=== PATIENT | male | born 1995 | race African-American/Black ===

== ENCOUNTER 2017-08-25 16:55 | Inpatient (IN) | payer SELFPAY ==
[~2017-08-25] VITALS: Ht 177.8 cm; Wt 67.4 kg
[2017-08-25 18:34] VITALS: BP 137/69; PULSE 64; RESP 18; TEMP 97.8
[2017-08-25] MEDS ORDERED: ALUMINUM/MAGNESIUM/SIMETH 30 ML CUP PO PRN (19:00)
[2017-08-25] MEDS ORDERED: ACETAMINOPHEN 325 MG TAB PO PRN (19:00)
[2017-08-25] MEDS ORDERED: hydrOXYzine HCL 50 MG TAB PO PRN (19:00)
[2017-08-25] MEDS ORDERED: BENZTROPINE MESYLATE 1 MG TAB PO PRN (19:00)
[2017-08-25] MEDS ORDERED: BENZTROPINE MESYLATE 2 MG/2 ML VIAL IM PRN (19:00)
[2017-08-25] MEDS ORDERED: MAGNESIUM HYDROXIDE SUSP 30 ML CUP PO PRN (19:00)
[2017-08-25] MEDS ORDERED: diphenhydrAMINE HCL 50 MG CAP - HS PRN PO (19:00)
[2017-08-25] MEDS ORDERED: LORazepam 2 MG/ML VIAL IV PUSH PRN ×4 (19:15)
[2017-08-25] MEDS ORDERED: LORazepam 1 MG TAB PO PRN (19:15)
[2017-08-25] MEDS ORDERED: FLUMAZENIL 0.5 MG/5 ML VIAL IV PUSH PRN (19:15)
[2017-08-25] MEDS ORDERED: LORazepam 2 MG TAB PO PRN (19:15)
[2017-08-25] MEDS ORDERED: REMOVE OLD NICOTINE PATCH T-DERMAL SCH (21:00)
[2017-08-25] MEDS ORDERED: LORazepam 2 MG/ML VIAL IM PRN ×4 (23:30)
[2017-08-26 05:43] VITALS: BP 131/68; PULSE 69; RESP 20; TEMP 97.7; O2SAT 100
--- NOTE | 2017-08-26 08:52 | MH ---
cc: XAVI SALGADO DATE OF ADMISSION 08/25/2017 ADMISSION DIAGNOSES 1. Obsessive-compulsive disorder, F42.9 LEGAL STATUS The patient is capacitated to consent for admission and for medications/treatment. Voluntary status. Patient is refusing voluntary admission and will be discharged today. HISTORY OF PRESENT ILLNESS Mr. Villa is a 21-year-old -[place] Islander male with a reported history of obsessive-compulsive disorder who presents in transfer from [facility] under a Trejo ACT. Documentation from [facility] reviewed. The patient presented there complaining of anxiety and compulsive thoughts per the ED provider note. He was seen by the psychiatric screener at an outside hospital who apparently misinterpreted the patients compulsions as reflective of auditory hallucinations. The patient was placed under a Trejo ACT and transferred here to [place]. Reviewing our electronic medical record, I note that the patient was followed by the child psychiatric team for ADHD and was most recently admitted under Dr. Miller in 2004 to the child psychiatric unit for that issue. The patient seen and examined. Chart reviewed. Case discussed with nursing staff. There has been no evidence of any suicidality or homicidality or behavioral disturbance overnight in the patient. On my examination this morning, the patient is calm and cooperative with exam. He reports to me that he has had obsessions and compensatory compulsions since age 18. He says that he has ego-dystonic, intrusive negative thoughts including thoughts that he might . He says that he compensates by saying prayers and also "rebuking the devil." During the interview, the patient exhibits one of these compensatory compulsions by saying "God please forgive me for jinxing. God please forget me for jinxing." He denies any audiovisual hallucinations. He does not appear internally stimulated. He denies any suicidal or homicidal ideation, intent or plan on direct questioning and contracts for safety. I can elicit no paranoia, no ideas of reference, no thought insertion or withdrawal or grandiosity or other delusional material. The patient does admit to some dysphoria associated with his obsessive-compulsive disorder, but I can elicit no depressive or hypomanic/manic symptoms otherwise. Sleep is reportedly fair and appetite is good. He says that he went into the outside hospital primarily just to get help with his anxiety. The remainder of the psychiatric ROS is negative. The patient has no physical complaints this morning. With the patient's permission, I have obtained collateral information from his mother, Senait Morales, at [phone]. She reports that the patient has a history of obsessive-compulsive disorder, although this has also been described as psychosis and ADHD in the past. The patient's disability was apparently stopped over the summer because someone reported his primary diagnosis as depression. The patient's mother reports that the patient has compulsions as the patient himself described, but he also will turn the light switch off and on repeatedly and also calls family members and says prayers repeatedly over the phone. The mother knows of no history of previous suicide attempts or violence in adulthood in the patient (he did act out at times physically as a child). She would like to see the patient receive treatment, but she does not have any acute safety concerns with the patient being discharged today when I asked. I have recommended that the patient's mother secure the home of all potential means of harm to self or others out of an abundance of caution, and I have also educated her regarding the means to have the patient brought for urgent psychiatric evaluation should the need arise including Trejo ACT an ex parte. PAST PSYCHIATRIC HISTORY The patient reports a history of obsessive-compulsive disorder. He follows at [facility] in [place] and is reportedly only prescribed Valium and metoprolol for his condition. He was most recently psychiatrically admitted approximately a year ago at [facility]. He denies a history of suicide attempts. He does have a history of acting out behavior as a child, but denies any history of violence as an adult. He reports a previous trial of Zoloft and Risperdal and mother adds that he has also tried Prozac in the past. He has never had a trial of clomipramine. FAMILY HISTORY The patient denies a family history of serious mental illness, substance use disorder or suicide. CHEMICAL DEPENDENCY HISTORY The patient reports occasional alcohol use. He denies any other substance use. He is a nonsmoker. SOCIAL HISTORY The patient reports that he lives with his mother. He is single with no children. He has a tenth grade education. He previously received disability benefits, but these have been cut off. He is not presently working. He denies any history. Denies any legal history. Denies any access to guns or firearms. He denies any history of abuse or neglect. He is a Nondenominational. PAST MEDICAL HISTORY The patient reports a history hypertension. MEDICATIONS 1. The patient takes Valium as needed. 2. Metoprolol 25 mg twice a day, although the patient reports that he usually only takes this once a day. ALLERGIES No known allergies. REVIEW OF SYSTEMS Except as noted in HPI, this is negative. PHYSICAL EXAMINATION VITAL SIGNS: Temperature 97.7, pulse 69, respirations 20, blood pressure 131/68, pulse oximetry 100% on room air. Physical examination was completed by the ED provider at outside hospital. On my examination today, the patient appears to be in no acute physical distress. No motoric abnormalities noted. In particular, no tics and the patient denies any history of tic behavior. LABORATORY DATA Laboratories from outside hospital reviewed: CBC is unremarkable. White blood cell count, hemoglobin and platelets are all within normal limits. CMP is unremarkable. Renal function and hepatic function are within normal limits. Alcohol level undetectable. Urine toxicology was positive for benzodiazepines which are reportedly prescribed to him. Urinalysis was bland. Tylenol and salicylate level were undetectable. MENTAL STATUS EXAM The patient is casually dressed. He is well-groomed and certainly maintaining basic hygiene. He is awake and alert and oriented x4. There is no evidence of delirium. No motoric abnormalities noted. Speech is within normal limits for rate, tone and volume. Language and fund of knowledge are average. Focus and concentration are intact. Memory is grossly intact on clinical exam. Mood is fair and affect is full and reactive. Thought process linear and logical, although thought content is disturbed by obsessions and corresponding compulsive behavior. I can elicit no delusional material. He denies any audiovisual hallucinations and does not appear internally stimulated. He denies any suicidal or homicidal ideation, intent or plan. Insight and judgment are fair. ASSESSMENT/PLAN This is a 21-year-old -[place] Islander male with psychiatric history as detailed above who presents in transfer from outside hospital under a Trejo ACT. On my examination today, the patient describes an approximately three-year history of obsessive-compulsive disorder. He clearly describes symptoms of obsessive-compulsive disorder now, and I cannot appreciate any symptoms of other psychiatric illness except for some dysphoria associated with his OCD. The patient is presently only being managed with a benzodiazepine and a beta gayle, which seems inappropriate given the severity of his OCD symptoms. I have strongly recommended that the patient remain on the unit to allow us to initiate serotonergic antidepressant medication with plans to titrate to effect. We might also consider augmenting with an atypical antipsychotic. However, the patient is insisting on discharge today. The patient's mother has requested the opportunity to speak with the patient to try to convince him to remain on the unit to receive some treatment. If she is unsuccessful, I do not believe that I have any basis to retain the patient on the inpatient unit involuntarily. In particular, the patient is not suicidal or homicidal. He appears to be attending to his basic needs. There is no known history of suicide or recent violence. Consequently, the patient does not meet the Trejo ACT criteria. My hope is, however, that the patient will remain on the unit voluntarily for further treatment. UPDATE: Patient has spoken with mother but continues to insist on discharge today. He does not meet criteria for involuntary psychiatric hospitalization at this time. Patient will therefore be discharged home today AGAINST MEDICAL ADVICE. He leaves in guarded condition because of the AMA discharge. I have explained to the patient that he is leaving AMA. He should follow up with outpatient mental health provider as arranged by counselor. He should also follow up with primary care. I have counseled the patient to return to the psychiatric emergency room for any concerning psychiatric symptoms as part of a general safety plan. He should resume his prior to admission medications on discharge, and I have provided him with no prescriptions today. This note serves also as my discharge summary. Xavi HARDING /7:49 AM /8:21 AM RE
[2017-08-26] MEDS ORDERED: NICOTINE 21 MG/24 HR PATCH T-DERMAL SCH (09:00)
[2017-08-26 10:13] VITALS: BP 121/88; PULSE 73; RESP 18; TEMP 97.8; O2SAT 100
[2017-08-26 12:33] LABS: BICARBONATE 30.9 MEQ/L (21.0-32.0); CALCIUM 9.4 MG/DL (8.5-10.1); CHLORIDE 101 MEQ/L (98-107); CHOLESTEROL 86 MG/DL (120-200); CREATININE 1.03 MG/DL (0.60-1.30); GLOMERULAR FILTRATION RATE 109 ML/MIN (>89); SODIUM (NA) 139 MEQ/L (136-145)
[2017-08-26 12:36] LABS: BLOOD UREA NITROGEN 13 MG/DL (7-18); GLUCOSE,RANDOM 93 MG/DL (74-106)
[2017-08-26 12:48] LABS: CHOLESTEROL/ HDL RATIO 1.72 RATIO; HDL CHOLESTEROL 49.9 MG/DL (40.0-60.0); LDL CHOLESTEROL 28 MG/DL (0-99); TRIGLYCERIDES 42 MG/DL (42-150)
[2017-08-26 14:48] LABS: HEMOGLOBIN A1C 5.4 % (4.3-6.0)
== END 2017-08-26 15:00 | disposition left against medical advice (07) | DRG 882 ==
LOC: H270 18:29
PROVIDERS: ADMIT Psychiatry & Neurology Psychiatry; ATTEND Psychiatry & Neurology Psychiatry
DX: F42.9 Obsessive-compulsive disorder, unspecified (principal); I10 Essential (primary) hypertension
CPT/HCPCS: 80048; 80061; 83036; 84443

== ENCOUNTER 2017-09-11 12:06 | Inpatient (IN) | payer OTHER ==
[2017-09-11] MEDS ORDERED: LORazepam 2 MG/ML VIAL IM PRN (17:30)
[2017-09-11] MEDS ORDERED: ALUMINUM/MAGNESIUM/SIMETH 30 ML CUP PO PRN (17:30)
[2017-09-11] MEDS ORDERED: ACETAMINOPHEN 325 MG TAB PO PRN (17:30)
[2017-09-11] MEDS ORDERED: MAGNESIUM HYDROXIDE SUSP 30 ML CUP PO PRN (17:30)
[2017-09-11 19:42] VITALS: BP 132/63; PULSE 88; TEMP 98.1
[2017-09-11] MEDS: REMOVE OLD NICOTINE PATCH T-DERMAL SCH (21:00)
[2017-09-12 05:41] VITALS: BP 135/58; PULSE 85; RESP 18; TEMP 97.9; O2SAT 99
[2017-09-12] MEDS: NICOTINE 21 MG/24 HR PATCH T-DERMAL SCH (07:47)
[2017-09-12] MEDS ORDERED: hydrOXYzine HCL 50 MG TAB PO PRN (14:00)
--- NOTE | 2017-09-12 14:02 | EKG ---
Date Performed: 09/12/2017 Time Performed: 10:51:10 PTAGE: 21 years EKG: Sinus rhythm EARLY REPOLARIZATION BORDERLINE ECG PREVIOUS TRACING : 11/15/2002 14.07 Normalization of T-waves in V1 and V2. DOCTOR: Venancio George Interpretating Date/Time 09/12/2017 14:01:08
[2017-09-12] MEDS ORDERED: SERTRALINE HCL 50 MG TAB PO SCH (14:15)
--- NOTE | 2017-09-12 14:22 | HHI.HP ---
Provisional Diagnosis Admission Date Sep 11, 2017 at 16:52 [place] I. Brief psychotic disorder F 23 OCD F 42.9 Certification of Person's Competence To Provide Express and Informed Consent I have personally examined Adalid Villa , a person being served at [facility] on, Sep 12, 2017 14:08. Express and informed consent means consent voluntarily given in writing, by a competent person, after sufficient explanation and disclosure of the subject matter involved to enable the person to make a knowing and willful decision without any element of force, fraud, deceit, duress, or other form of constraint or coercion. This person is 18 years of age or older, is not now known to be incompetent to consent to treatment with a guardian advocate, and does not have a health care surrogate or proxy currently making medical treatment decisions. I have found this person to be one of the following: [] Competent to provide express and informed consent, as defined above, for voluntary admission to this facility and is competent to provide express and informed consent for treatment. He/she has the consistent capacity to make well reasoned, willful, and knowing decisions concerning his or her medical or mental health treatment. The person fully and consistently understands the purpose of the admission for examination/placement and is fully capable of personally exercising all rights assured [place] [] Incompetent to provide express and informed consent to voluntary admission, and this is incompetent to provide express and informed consent to treatment. The person must be transferred to involuntary status and a petition for a guardian advocate filed with the Circuit Court. []xxx Refusing to provide express and informed consent to voluntary admission but is competent to provide express and informed consent for treatment. The person must be discharged or transferred to involuntary status. Form shall be completed within 24 hours of a person's arrival at the receiving facility and filed in the clinical record of each person: 1. Admitted on a voluntary basis 2. Permitted to provide express and informed consent to his/her own treatment 3. Allowed to transfer from involuntary to voluntary status 4. Prior to permitting a person to consent to his or her own treatment after having been previously found incompetent to consent to treatment. History of Present Illness Capacity: Lacks Capacity (patient lacks capacity sign for admission, patient has capacity to sign for medication) Psych Chief Complaint: anxious vague suicidality psychosis HPI Patient is a 21-year-old Afro-British male comes in under Trejo act from [facility] signed by Dr. Jaylon Castro dated 09/10/17 at 1600 hrs. that document reviewed initially stating that patient states increased anxiety states he doesn't feel safe around himself the is concerned the devil is going to get him. And toxicology at that facility positive for benzodiazepines. Rigid patient seen a Dr. Aston Gold earlier this month. Patient discharged with diagnosis of OCD. Patient does exhibit some compulsive behaviors or obsessive traits. However patient also had multiple visits of [facility]. In fact he was there prior to coming under Dr. Gold care. Today patient sitting was room somewhat anxious and tense nurse thaddeus present throughout session he describes anxiety with nervousness and tension. He had an episode of chanting a spiritual type she and basically telling the devil to leave him. This was repeated 4-5 times in a row and then he would calm. He also had episodes of what appear to be significant thought blocking distractibility glancing over the right shoulder as if responding to internal stimuli. Mini-Mental the stomach who patient does be criteria for further observation and assessment we'll start the patient on Lexapro address the obsessive compulsive component of this. Will refrain from any other typical antipsychotics and observe. Patient did not allow me talk his mother to gain further information Review of Systems Constitutional: DENIES: Diaphoretic episodes, Fatigue, Fever, Weight gain, Weight loss, Chills, Dizziness, Change in appetite, Night Sweats Endocrine: DENIES: Heat/cold intolerance, Polydipsia, Polyuria, Polyphagia Eyes: DENIES: Blurred vision, Diplopia, Eye inflammation, Eye pain, Vision loss , Photosensitivity, Double Vision Ears, nose, mouth, throat: DENIES: Tinnitus, Hearing loss, Vertigo, Nasal discharge, Oral lesions, Throat pain, Hoarseness, Ear Pain, Running Nose, Epistaxis, Sinus Pain, Toothache, Odynophagia Respiratory: DENIES: Apneas, Cough, Snoring, Wheezing, Hemoptysis, Sputum production, Shortness of breath Cardiovascular: DENIES: Chest pain, Palpitations, Syncope, Dyspnea on Exertion , PND, Lower Extremity Edema, Orthopnea, Claudication Gastrointestinal: DENIES: Abdominal pain, Black stools, Bloody stools, Constipation, Diarrhea, Nausea, Vomiting, Difficulty Swallowing, Anorexia Genitourinary: DENIES: Sexual dysfunction, Urinary frequency, Urinary incontinence, Urgency, Hematuria, Dysuria, Nocturia, Penile Discharge, Testicular Pain, Testicular Swelling Musculoskeletal: DENIES: Joint pain, Muscle aches, Stiffness, Joint Swelling, Back pain, Neck pain Integumentary: DENIES: Abnormal pigmentation, Nail changes, Pruritus, Rash Hematologic/lymphatic: DENIES: Bruising, Lymphadenopathy Immunologic/allergic: DENIES: Eczema, Urticaria Neurologic: DENIES: Abnormal gait, Headache, Localized weakness, Paresthesias, Seizures, Speech Problems, Tremor, Poor Balance Psychiatric: COMPLAINS OF: Anxiety, Hallucinations (vague), Suicidal Ideation ( vague) Past Psych History Psychological trauma history Denies Violence risk - others (6 mos) Low Violence risk - self (6 mos) Low to moderate Substance Abuse History Drugs/Alcohol past 12 months Denies Past Family Social History Coded Allergies: No Known Allergies (Verified Allergy, Severe, 04/24/03) Uncoded Allergies: NKA (Allergy, Unknown, 04/25/03) No Active Prescriptions or Reported Meds Current Medications Medications (Trade) Dose Ordered Sig/Keith Route Start Time Stop Time Status Last Admin (Ativan) 1 mg Q6H PRN PO 09/11/17 17:30 (Ativan Inj) 1 mg Q6H PRN IM 09/11/17 17:30 (Tylenol) 650 mg Q4H PRN PO 09/11/17 17:30 (Milk Of Magnesia Liq) 30 ml DAILY PRN PO 09/11/17 17:30 (Mag-Al Plus Susp Liq) 30 ml Q6H PRN PO 09/11/17 17:30 (Habitrol 21 Mg Patch.24 Hr) 1 patch DAILY T-DERMAL 09/12/17 09:00 Miscellaneous Information 1 HS T-DERMAL 09/11/17 21:00 (Benadryl) 50 mg HS PRN PO 09/12/17 14:00 UNV (Atarax) 50 mg Q6H PRN PO 09/12/17 14:00 UNV (Lopressor) 25 mg Q12HR PO 09/12/17 14:00 UNV Family Psych History Patient has had mental health contact from a young child through [facility] with ODD and ADD diagnoses Social History Patient lives with his mother Patient's Strengths (min. 2) Patient verbal atelectasis health care Physical Exam Patient medically cleared [facility] at the present time patient sitting quietly in his room he is in no acute distress, no respiratory distress , now with abdominal pain. Patient will 4 extremities without difficulty no abnormal motor movements noted Vital Signs Vital Signs Date Time Temp Pulse Resp B/P (MAP) Pulse Ox O2 Delivery O2 Flow Rate FiO2 09/12/17 05:41 97.9 85 18 135/58 (83) 99 Mental Status Examination Appearance: Appropriate Consciousness: Alert Orientation: x4 Motor Activity: Normal gait Speech: Other (there is some thought blocking noted) Language: Other (somewhat brief) Fund of Knowledge: Adequate Attention and Concentration: Easily Distracted Memory: Unremarkable Mood: Sad, Other (restricted) Affect: Other (decreased range and intensity) Thought Process & Associations: Loose associations Thought Content: Obsessions, Compulsive Hallucination Type: None (denies it appears to be responding to internal stimuli) Delusion Type: None Suicidal Ideation: No Suicidal Plan: No Suicidal Intention: No Homicidal Ideation: No Homicidal Plan: No Homicidal Intention: No Insight: Poor Judgment: Poor Assessment & Plan Problem List: (1) BRIEF PSYCHOTIC DISORDER ICD Codes: F23 - BRIEF PSYCHOTIC DISORDER (2) Obsessive-compulsive disorder ICD Codes: F42.9 - Obsessive-compulsive disorder, unspecified Assessment & Plan Estimated LOS: days this time patient meets criteria for further inpatient psychiatric assessment of the Trejo act I'll do first opinion request second opinion, though I feel he has capacity to sign for medications. We will set the patient on Lexapro 10 mg daily and observe consideration of antipsychotics and for the psychotropics will be made as indicated Discharge Planning Probable return home to family Request HC Surrog/Guard Advoc?: No Jacinto Juares MD Sep 12, 2017 14:22
[2017-09-12] MEDS: METOPROLOL TARTRATE 25 MG TAB PO SCH ×2 (14:30→20:51)
[2017-09-12 16:50] VITALS: BP 141/58; PULSE 79; RESP 16; TEMP 98; O2SAT 99
[2017-09-12 18:54] VITALS: BP 117/61; PULSE 71
[2017-09-12] MEDS: REMOVE OLD NICOTINE PATCH T-DERMAL SCH (20:51)
[2017-09-12] MEDS ORDERED: diphenhydrAMINE HCL 50 MG CAP PO PRN (21:00)
[2017-09-13 06:22] VITALS: BP 122/60; PULSE 91; RESP 18; TEMP 97.4; O2SAT 96
[2017-09-13] MEDS: NICOTINE 21 MG/24 HR PATCH T-DERMAL SCH (07:42)
[2017-09-13] MEDS: METOPROLOL TARTRATE 25 MG TAB PO SCH ×2 (08:03→21:00)
[2017-09-13] MEDS: ESCITALOPRAM OXALATE 10 MG TAB PO SCH (08:03)
--- NOTE | 2017-09-13 14:28 | PD.PSY.CON ---
Provisional Diagnosis Admission Date Sep 11, 2017 at 16:52 [place] I. Brief psychotic disorder F 23 OCD F 42.9 History of Present Illness Service Psychiatry Consult Requested By Psychiatry Reason for Consult 2nd Opinion Primary Care Physician No Primary Care Physician HPI Pt seen and discussed with staff. Chart reviewed. He was admitted to [facility] under a BA alleging that he feared that he devil would get him and was voicing active suicidal ideations. He has been sitting in room repeating judaism phrases like "I rebuke you in the name of Mina" constantly. He has been exhibiting compulsive and obsessive behaviors. Staff report that he has been engaging in bizarre behaviors but has been more interacting more today.During exam pt covers face with hands and mumbles, "I just be tripping sometimes. I just need to get my thoughts right." He engages in compulsive ritualized physical movements. He shuts down and does not engage in rest of interview. Review of Systems Psychiatric: COMPLAINS OF: Anxiety, Mood changes Past Family Social History Coded Allergies: No Known Allergies (Verified Allergy, Severe, 04/24/03) Uncoded Allergies: NKA (Allergy, Unknown, 04/25/03) No Active Prescriptions or Reported Meds Current Medications Medications (Trade) Dose Ordered Sig/Keith Route Start Time Stop Time Status Last Admin (Ativan) 1 mg Q6H PRN PO 09/11/17 17:30 (Ativan Inj) 1 mg Q6H PRN IM 09/11/17 17:30 (Tylenol) 650 mg Q4H PRN PO 09/11/17 17:30 (Milk Of Magnesia Liq) 30 ml DAILY PRN PO 09/11/17 17:30 (Mag-Al Plus Susp Liq) 30 ml Q6H PRN PO 09/11/17 17:30 (Habitrol 21 Mg Patch.24 Hr) 1 patch DAILY T-DERMAL 09/12/17 09:00 Miscellaneous Information 1 HS T-DERMAL 09/11/17 21:00 (Benadryl) 50 mg HS PRN PO 09/12/17 21:00 (Atarax) 50 mg Q6H PRN PO 09/12/17 14:00 (Lopressor) 25 mg Q12HR PO 09/12/17 14:30 09/13/17 08:03 (Lexapro) 10 mg DAILY PO 09/13/17 09:00 09/13/17 08:03 Patient's Strengths (min. 2) Patient verbal atelectasis health care Physical Exam Vital Signs Vital Signs Date Time Temp Pulse Resp B/P (MAP) Pulse Ox O2 Delivery O2 Flow Rate FiO2 09/13/17 06:22 97.4 91 18 122/60 (80) 96 Mental Status Examination Appearance: Appropriate Consciousness: Alert Orientation: x4 Motor Activity: Normal gait Speech: Other (there is some thought blocking noted) Language: Other (somewhat brief) Fund of Knowledge: Adequate Attention and Concentration: Easily Distracted Memory: Unremarkable Mood: Sad, Other (restricted) Affect: Other (decreased range and intensity) Thought Process & Associations: Loose associations Thought Content: Obsessions, Compulsive Hallucination Type: None (denies it appears to be responding to internal stimuli) Delusion Type: None Suicidal Ideation: No Suicidal Plan: No Suicidal Intention: No Homicidal Ideation: No Homicidal Plan: No Homicidal Intention: No Insight: Poor Judgment: Poor Assessment & Plan Problem List: (1) BRIEF PSYCHOTIC DISORDER ICD Codes: F23 - BRIEF PSYCHOTIC DISORDER (2) Obsessive-compulsive disorder ICD Codes: F42.9 - Obsessive-compulsive disorder, unspecified Assessment & Plan I agree that pt meets BA criteria. 2nd opinion completed Estimated LOS: days Request HC Surrog/Guard Advoc?: Edwige Burns MD Sep 13, 2017 14:28
[2017-09-13 18:00] VITALS: BP 131/86; PULSE 65; RESP 17; TEMP 96.9; O2SAT 97
[2017-09-13] MEDS: REMOVE OLD NICOTINE PATCH T-DERMAL SCH (21:00)
[2017-09-13 21:14] VITALS: BP 131/86; PULSE 65; RESP 17; TEMP 96.9; O2SAT 97
[2017-09-14 05:39] VITALS: BP 125/73; PULSE 86; RESP 18; TEMP 97.5; O2SAT 100
[2017-09-14] MEDS: METOPROLOL TARTRATE 25 MG TAB PO SCH ×2 (08:50→21:00)
[2017-09-14] MEDS: ESCITALOPRAM OXALATE 10 MG TAB PO SCH (08:50)
[2017-09-14] MEDS: NICOTINE 21 MG/24 HR PATCH T-DERMAL SCH (08:57)
[2017-09-14] MEDS ORDERED: BENZTROPINE MESYLATE 1 MG TAB PO PRN (10:45)
[2017-09-14] MEDS ORDERED: BENZTROPINE MESYLATE 2 MG/2 ML VIAL IM PRN (10:45)
--- NOTE | 2017-09-14 10:45 | HHI.PYPN ---
Subjective Chief Complaint: anxious vague suicidality psychosis Remarks Patient seen and examined with nurse. Chart reviewed. Case discussed with nursing staff who reports patient is religiously preoccupied and laughs inappropriately. Slept poorly overnight. On my examination today, patient has considerably delayed responses and appears to be internally stimulated, although he denies audiovisual hallucinations when asked. Some thought blocking is present. He denies any suicidal or homicidal ideation. He reports that he slept poorly overnight because he was "thinking." He denies obsessions or compulsions when asked. Denies substance use prior to admission. No side effects from medications. No physical complaints. Reports that he has been on Seroquel in the past. Patient's degree of psychiatric impairment is significant enough that I fear that he is unable to engage in a discussion of pharmacotherapeutic options going forward. He is presently admitted involuntarily to the inpatient unit. I believe that his appropriate at this juncture to additionally request a healthcare surrogate and guardian advocate, and I have completed this paperwork now. I have placed a call to the patient's mother, Senait Morales, who has agreed to act as the patient's healthcare surrogate. She reports that prior to admission the patient had called the EMS 15 times for nonemergent complaints as a consequence of his psychiatric impairment. He also has reportedly been collecting 13 bottles of urine in his room. She notes that the patient has been on Seroquel in the past but this caused unacceptable nausea and vomiting. He has not had a trial of Zyprexa. R/B/A for this medication reviewed with patient's mother and healthcare surrogate, and she is agreeable to initiating this agent now. I have also discussed R/B/A for Lexapro with mother. Review of Systems ROS Limitations: Psychotic, Poor Historian Except as stated in HPI: all other systems reviewed are Neg Mental Status Examination Appearance: Appropriate Consciousness: Alert Orientation: Person, Place (at least) Motor Activity: Other (somewhat psychomotor slowed) Speech: Slow Language: Adequate Fund of Knowledge: Adequate Attention and Concentration: Easily Distracted Memory: Unremarkable Mood: Other (mildly dysphoric) Affect: Blunt (tending towards flat) Thought Process & Associations: Other (linear but slowed) Thought Content: Thought blocking Hallucination Type: Other (denies AVH but appears internally stimulated) Delusion Type: None Suicidal Ideation: No Suicidal Plan: No Suicidal Intention: No Homicidal Ideation: No Homicidal Plan: No Homicidal Intention: No Insight: Poor Judgment: Poor Results Labs Laboratories from outside hospital reviewed: CBC unremarkable. CMP unremarkable. Renal and hepatic function intact. Alcohol level undetectable. Tylenol and salicylate level undetectable. Urinalysis reveals 4+ ketones but no pyuria or leukocyte esterase/nitrates. Urine toxicology positive only for benzodiazepines Vitals/IOs Vital Signs Date Time Temp Pulse Resp B/P (MAP) Pulse Ox O2 Delivery O2 Flow Rate FiO2 09/14/17 05:39 97.5 86 18 125/73 (90) 100 Assessment & Plan Problem List: (1) BRIEF PSYCHOTIC DISORDER ICD Codes: F23 - BRIEF PSYCHOTIC DISORDER (2) Obsessive-compulsive disorder ICD Codes: F42.9 - Obsessive-compulsive disorder, unspecified Assessment & Plan Add Zyprexa Zydis 5 mg at bedtime to target psychotic symptoms with plans to titrate to effect. Continue Lexapro with plans to titrate to target obsessive/ compulsive symptoms should these again become more prominent. Continue to monitor on an inpatient unit. Continue other medications and care as ordered. I have requested a healthcare surrogate/guardian advocate as noted above. Justification for Cont. Inpt. Med changes. Impairment in reality construction. High risk for decompensation in less restrictive environment. Discharge Planning Pending psychiatric stabilization Request HC Surrog/Guard Advoc?: Yes (now requesting healthcare surrogate/ guardian advocate) Aston Gold MD Sep 14, 2017 10:45
[2017-09-14] MEDS: LORazepam 1 MG TAB PO PRN (12:13)
[2017-09-14 12:16] VITALS: BP 119/63; PULSE 66; RESP 16; TEMP 97.8; O2SAT 100
[2017-09-14 15:53] VITALS: BP 126/79; PULSE 68; RESP 16; TEMP 98.3; O2SAT 97
[2017-09-14 18:00] VITALS: BP 126/79; PULSE 68; RESP 15; TEMP 98.3; O2SAT 97
[2017-09-14] MEDS: REMOVE OLD NICOTINE PATCH T-DERMAL SCH (21:00)
[2017-09-14] MEDS: OLANZapine ODT 5 MG TAB PO SCH (21:54)
[2017-09-15 06:01] VITALS: BP 129/69; PULSE 80; RESP 18; TEMP 97.5; O2SAT 100
[2017-09-15] MEDS: METOPROLOL TARTRATE 25 MG TAB PO SCH (08:41)
[2017-09-15] MEDS: NICOTINE 21 MG/24 HR PATCH T-DERMAL SCH (08:41)
[2017-09-15] MEDS: ESCITALOPRAM OXALATE 10 MG TAB PO SCH (08:41)
--- NOTE | 2017-09-15 12:07 | HHI.PYPN ---
Subjective Chief Complaint: anxious vague suicidality psychosis Remarks Patient seen and examined with nurse. Chart reviewed. Case discussed with RN who reports patient was engaging in some chanting but has been no other behavioral problem. Patient is refusing HS dose of metoprolol because he says he only takes this medication once a day. Case discussed in treatment team. On my exam, patient presents as somewhat hypoverbal and flat. He denies AVH but appears to be responding somewhat to internal stimuli. He denies SI. He says that he was secluding in his room at home because he was fearful that the Devil would get him if he left. He does not feel that way here in the hospital. Some obsessional thinking reported. No side effects from medications but says that the Zyprexa "messed with me" in some way that he cannot put into words. He is willing to give this agent another try tonight. No physical complaints. Review of Systems ROS Limitations: Psychotic, Poor Historian Except as stated in HPI: all other systems reviewed are Neg Mental Status Examination Appearance: Appropriate Consciousness: Alert Orientation: Person, Place Motor Activity: Other (remains a little bit psychomotor slowed. No hand tremor , no dystonia, no dyskinesia, no other motor abnormalities noted.) Speech: Slow Language: Adequate Fund of Knowledge: Adequate Attention and Concentration: Easily Distracted Memory: Unremarkable Mood: Other (calm) Affect: Blunt (tending towards flat) Thought Process & Associations: Other (linear but slowed) Thought Content: Thought blocking, Obsessions Hallucination Type: Other (remains a little bit internally stimulated) Delusion Type: Other (sikhism) Suicidal Ideation: No Suicidal Plan: No Suicidal Intention: No Homicidal Ideation: No Homicidal Plan: No Homicidal Intention: No Insight: Poor Judgment: Poor Results Vitals/IOs Vital Signs Date Time Temp Pulse Resp B/P (MAP) Pulse Ox O2 Delivery O2 Flow Rate FiO2 09/15/17 06:01 97.5 80 18 129/69 (89) 100 Assessment & Plan Problem List: (1) BRIEF PSYCHOTIC DISORDER ICD Codes: F23 - BRIEF PSYCHOTIC DISORDER (2) Obsessive-compulsive disorder ICD Codes: F42.9 - Obsessive-compulsive disorder, unspecified Assessment & Plan Titrate Lexapro to 20 mg daily to target obsessive compulsive symptoms. Continue Zyprexa as ordered for now but consider further titration of this agent as well to target psychotic symptoms so long as the patient is able to tolerate it. Adjust metoprolol to reported home dosing. Occupational therapy consult. Continue to monitor on the inpatient unit. Continue other medications and care as ordered. Justification for Cont. Inpt. Med changes. Impairment in reality construction. High risk for decompensation in less restrictive environment. Discharge Planning Pending psychiatric stabilization. Request HC Surrog/Guard Advoc?: Yes Aston Gold MD Sep 15, 2017 12:07
[2017-09-15 18:37] VITALS: BP 121/58; PULSE 72; RESP 18; TEMP 97.9; O2SAT 97
[2017-09-15] MEDS: OLANZapine ODT 5 MG TAB PO SCH ×2 (20:57→21:00)
[2017-09-16 06:00] VITALS: BP 120/58; PULSE 78; RESP 18; TEMP 97.9; O2SAT 98
[2017-09-16] MEDS: ESCITALOPRAM OXALATE 10 MG TAB PO SCH (08:56)
[2017-09-16] MEDS: METOPROLOL TARTRATE 25 MG TAB PO SCH (08:56)
--- NOTE | 2017-09-16 13:42 | HHI.PYPN ---
Subjective Chief Complaint: anxious vague suicidality psychosis Remarks Patient seen and examined with nurse. Chart reviewed. Case discussed with nursing staff. Patient noted to be somewhat more visible on the unit. He did refuse his Zyprexa last night. I find the patient on the periphery, in the milieu but interacting little. On my examination, the patient reports that he is feeling "way better. I'm not thinking so much" referring to his obsessional thoughts. He denies any SI or HI. He denies any AVH. He says that he refused the Zyprexa because he did not like how it made him feel. He is somewhat resistant to selecting a different antipsychotic but agrees that if he does not feel significantly improved tomorrow, we might consider adding such an agent then. He denies side effects from the Lexapro. No physical complaints. Patient does seem to have improving insight regarding his mental illness and need for treatment. He is agreeable to remaining on the inpatient unit and able to engage in a productive discussion regarding his treatment options. Review of Systems Except as stated in HPI: all other systems reviewed are Neg Mental Status Examination Appearance: Appropriate Consciousness: Alert Orientation: Person, Place Motor Activity: Other (no motor abnormalities noted) Speech: Slow Language: Adequate Fund of Knowledge: Adequate Attention and Concentration: Easily Distracted Memory: Unremarkable Mood: Other (calm) Affect: Other (remains blunted, tending towards flat) Thought Process & Associations: Other (linear but slowed) Thought Content: Obsessions (reportedly decreased) Hallucination Type: None (denies AVH) Delusion Type: None Suicidal Ideation: No Suicidal Plan: No Suicidal Intention: No Homicidal Ideation: No Homicidal Plan: No Homicidal Intention: No Insight: Fair (improving) Judgment: Poor (improving) Results Labs Labs reviewed. No new labs. Vitals/IOs Vital Signs Date Time Temp Pulse Resp B/P (MAP) Pulse Ox O2 Delivery O2 Flow Rate FiO2 09/16/17 06:00 97.9 78 18 120/58 (78) 98 Assessment & Plan Problem List: (1) BRIEF PSYCHOTIC DISORDER ICD Codes: F23 - BRIEF PSYCHOTIC DISORDER (2) Obsessive-compulsive disorder ICD Codes: F42.9 - Obsessive-compulsive disorder, unspecified Assessment & Plan Continue Lexapro as ordered. Discontinue Zyprexa. To consider adding a different antipsychotic, although patient wishes to hold off for now. We will reassess tomorrow. Continue to monitor on the inpatient unit. Continue other medications and care as ordered. Patient may sign voluntary and consent for medications. Justification for Cont. Inpt. Risk for decompensation and less restrictive environment. Discharge Planning Pending psychiatric stabilization Request HC Surrog/Guard Advoc?: No Aston Gold MD Sep 16, 2017 13:41
[2017-09-16 19:21] VITALS: BP 124/64; PULSE 71; RESP 16; TEMP 98.9; O2SAT 98
[2017-09-17 05:25] VITALS: BP 135/62; PULSE 74; RESP 17; TEMP 98.2; O2SAT 98
[2017-09-17] MEDS: ESCITALOPRAM OXALATE 10 MG TAB PO SCH (10:11)
[2017-09-17] MEDS: METOPROLOL TARTRATE 25 MG TAB PO SCH (10:11)
--- NOTE | 2017-09-17 14:33 | HHI.PYPN ---
Subjective Chief Complaint: OCD/psychosis Remarks Patient seen and examined in day area. Chart reviewed. Case discussed with nursing staff. On my examination today, the patient is more interactive. Affect is more reactive and he smiles at intervals. He seems more at ease in the milieu. He reports that his obsessional thinking is decreasing. He slept well overnight. He denies any AVH. Denies side effects from medications but remains resistant to medication changes besides titration of Lexapro. No physical complaints. Review of Systems Except as stated in HPI: all other systems reviewed are Neg Mental Status Examination Appearance: Appropriate Consciousness: Alert Orientation: x4 Motor Activity: Other (no abnormal motor movements noted) Speech: Unremarkable Language: Adequate Fund of Knowledge: Adequate Attention and Concentration: Easily Distracted Memory: Unremarkable Mood: Appropriate Affect: Blunt (affect more reactive today) Thought Process & Associations: Intact, Linear Thought Content: Obsessions (decreasing) Hallucination Type: None Delusion Type: None Suicidal Ideation: No Suicidal Plan: No Suicidal Intention: No Homicidal Ideation: No Homicidal Plan: No Homicidal Intention: No Insight: Fair Judgment: Adequate (fair) Results Labs Labs reviewed. No new labs. Vitals/IOs Vital Signs Date Time Temp Pulse Resp B/P (MAP) Pulse Ox O2 Delivery O2 Flow Rate FiO2 09/17/17 05:25 98.2 74 17 135/62 (86) 98 Intake and Output 09/17/17 09/17/17 09/18/17 08:00 16:00 00:00 Intake Total 240 ml 120 ml Balance 240 ml 120 ml Assessment & Plan Problem List: (1) Obsessive-compulsive disorder with absent insight or delusional beliefs ICD Codes: F42.9 - Obsessive-compulsive disorder, unspecified Assessment & Plan: with delusional beliefs, delusions now subsiding. Assessment & Plan Continue Lexapro as ordered with plans to titrate through the weekend. Continue to monitor on the inpatient unit. Continue other medications and care as ordered. Justification for Cont. Inpt. Risk for decompensation in less restrictive environment. Discharge Planning Pending psychiatric stabilization Request HC Surrog/Guard Advoc?: No Aston Gold MD Sep 17, 2017 14:33
[2017-09-17 17:36] VITALS: BP 123/63; PULSE 70; RESP 16; TEMP 98; O2SAT 99
[2017-09-18 06:01] VITALS: BP 124/57; PULSE 77; RESP 16; TEMP 98.2; O2SAT 98
[2017-09-18] MEDS: METOPROLOL TARTRATE 25 MG TAB PO SCH (09:33)
[2017-09-18] MEDS: ESCITALOPRAM OXALATE 10 MG TAB PO SCH (09:33)
--- NOTE | 2017-09-18 17:12 | HHI.PYPN ---
Subjective Chief Complaint: OCD/psychosis Remarks Patient seen and examined with nurse. Chart reviewed. Case discussed with nursing staff. Patient noted to be doing a lot better. He is attending groups. Case discussed in treatment team were occupational and recreational therapist pain a somewhat different picture of the patient continuing to struggle with internal preoccupation and hyperreligiosity. On my examination today, the patient is including somewhat in his room. His affect does remain more reactive than at admission, and he does smile at intervals. He denies any SI, HI or AVH. Obsessional thinking slowly decreasing. He denies side effects from medications. No physical complaints. He is agreeable to titration of his Lexapro to anti-obsessional doses. He remains resistant to addition of an antipsychotic. Review of Systems Except as stated in HPI: all other systems reviewed are Neg Mental Status Examination Appearance: Appropriate Consciousness: Alert Orientation: x4 Motor Activity: Other (no motor abnormalities noted) Speech: Unremarkable Language: Adequate Fund of Knowledge: Adequate Attention and Concentration: Easily Distracted Memory: Unremarkable Mood: Appropriate Affect: Appropriate (fairly full and reactive) Thought Process & Associations: Intact, Linear Thought Content: Obsessions (continues to decrease) Hallucination Type: None Delusion Type: None Suicidal Ideation: No Suicidal Plan: No Suicidal Intention: No Homicidal Ideation: No Homicidal Plan: No Homicidal Intention: No Insight: Fair Judgment: Adequate (fair) Results Labs Labs reviewed. Vitals/IOs Vital Signs Date Time Temp Pulse Resp B/P (MAP) Pulse Ox O2 Delivery O2 Flow Rate FiO2 09/18/17 06:01 98.2 77 16 124/57 (79) 98 Intake and Output 09/18/17 09/18/17 09/19/17 08:00 16:00 00:00 Intake Total 480 ml Balance 480 ml Assessment & Plan Problem List: (1) Obsessive-compulsive disorder with absent insight or delusional beliefs ICD Codes: F42.9 - Obsessive-compulsive disorder, unspecified Assessment & Plan Titrate Lexapro to 30 mg over the weekend to bring the dose into the anti- obsessional range. Patient declines other medication changes at this time. Continue to monitor on the inpatient unit. Continue other medications and care as ordered. Justification for Cont. Inpt. Med changes. Discharge Planning Possible discharge after the weekend Request HC Surrog/Guard Advoc?: No Aston Gold MD Sep 18, 2017 17:12
[2017-09-18 18:00] VITALS: BP 133/60; PULSE 69; RESP 16; TEMP 98.4; O2SAT 98
[2017-09-19 06:10] VITALS: BP 117/64; PULSE 74; RESP 18; TEMP 98.1; O2SAT 98
[2017-09-19] MEDS: ESCITALOPRAM OXALATE 10 MG TAB PO SCH (09:21)
[2017-09-19] MEDS: METOPROLOL TARTRATE 25 MG TAB PO SCH (09:21)
--- NOTE | 2017-09-19 14:49 | HHI.PYPN ---
Subjective Chief Complaint: OCD/psychosis Remarks Patient was seen and case discussed with nursing. Patient appears shy, anxious and is hyperverbal during the interview. Describes "compulsive thoughts." He is quite vague and denies any rituals. He denies suicidal or homicidal ideation intent or plan. Eating and sleeping well. Mental Status Examination Appearance: Appropriate Consciousness: Alert Orientation: x4 Motor Activity: Other (no motor abnormalities noted) Speech: Unremarkable Language: Adequate Fund of Knowledge: Adequate Attention and Concentration: Easily Distracted Memory: Unremarkable Mood: Appropriate Affect: Appropriate (fairly full and reactive) Thought Process & Associations: Intact, Linear Thought Content: Obsessions (continues to decrease) Hallucination Type: None Delusion Type: None Suicidal Ideation: No Suicidal Plan: No Suicidal Intention: No Homicidal Ideation: No Homicidal Plan: No Homicidal Intention: No Insight: Fair Judgment: Adequate (fair) Results Vitals/IOs Vital Signs Date Time Temp Pulse Resp B/P (MAP) Pulse Ox O2 Delivery O2 Flow Rate FiO2 09/19/17 06:10 98.1 74 18 117/64 (81) 98 Intake and Output 09/19/17 09/19/17 09/20/17 08:00 16:00 00:00 Intake Total 240 ml Balance 240 ml Assessment & Plan Problem List: (1) Obsessive-compulsive disorder with absent insight or delusional beliefs ICD Codes: F42.9 - Obsessive-compulsive disorder, unspecified Assessment & Plan We will keep Lexapro 20 mg given this is the FDA maximum Justification for Cont. Inpt. Patient will decompensate in a less restrictive setting Request HC Surrog/Guard Advoc?: No Helder Varner DO Sep 19, 2017 14:49
[2017-09-19 18:10] VITALS: BP 126/57; PULSE 61; RESP 16; TEMP 98.2; O2SAT 100
[2017-09-20 05:53] VITALS: BP 108/55; PULSE 90; RESP 16; TEMP 98.4; O2SAT 98
[2017-09-20] MEDS: ESCITALOPRAM OXALATE 10 MG TAB PO SCH (09:45)
[2017-09-20] MEDS: METOPROLOL TARTRATE 25 MG TAB PO SCH (09:45)
--- NOTE | 2017-09-20 12:06 | HHI.PYPN ---
Subjective Chief Complaint: OCD/psychosis Remarks Patient was seen and case discussed with nursing. Patient is rather vague with his "compulsions." Is not appear they are specific actions that he has to do. Though he notes an improvement. He is rather distant and internally preoccupied during the interview. Has concerns about his discharge. Denies suicidal or homicidal ideation intent or plan Mental Status Examination Appearance: Appropriate Consciousness: Alert Orientation: x4 Motor Activity: Other (no motor abnormalities noted) Speech: Unremarkable Language: Adequate Fund of Knowledge: Adequate Attention and Concentration: Easily Distracted Memory: Unremarkable Mood: Appropriate Affect: Appropriate (fairly full and reactive) Thought Process & Associations: Intact, Linear Thought Content: Obsessions (continues to decrease) Hallucination Type: None Delusion Type: None Suicidal Ideation: No Suicidal Plan: No Suicidal Intention: No Homicidal Ideation: No Homicidal Plan: No Homicidal Intention: No Insight: Fair Judgment: Adequate (fair) Results Vitals/IOs Vital Signs Date Time Temp Pulse Resp B/P (MAP) Pulse Ox O2 Delivery O2 Flow Rate FiO2 09/20/17 05:53 98.4 90 16 108/55 (72) 98 Assessment & Plan Problem List: (1) Obsessive-compulsive disorder with absent insight or delusional beliefs ICD Codes: F42.9 - Obsessive-compulsive disorder, unspecified Assessment & Plan Continue current treatment plan Justification for Cont. Inpt. Patient would decompensate in a less restrictive setting Request HC Surrog/Guard Advoc?: No Helder Varner DO Sep 20, 2017 12:06
[2017-09-20 18:45] VITALS: BP 128/58; PULSE 66; RESP 16; TEMP 98.5; O2SAT 99
[2017-09-20] MEDS: LORazepam 1 MG TAB PO PRN (22:47)
[2017-09-21 06:07] VITALS: BP 121/58; PULSE 99; RESP 18; TEMP 97.8; O2SAT 98
[2017-09-21] MEDS: ESCITALOPRAM OXALATE 10 MG TAB PO SCH (09:00)
[2017-09-21] MEDS: METOPROLOL TARTRATE 25 MG TAB PO SCH (09:00)
[2017-09-21] MEDS ORDERED: ESCI10TA PO (11:38)
[2017-09-21] MEDS ORDERED: METO25TA3 PO (11:38)
--- NOTE | 2017-09-21 11:38 | HHI.DS ---
Psychiatry Discharge Summary Inpatient Psychiatric care?: Yes Advance Directive: Yes Mental Health AdvanceDirective: No Health Care Proxy: No Admission Admission Date Sep 11, 2017 at 16:52 Admission Diagnosis: (1) BRIEF PSYCHOTIC DISORDER ICD Code: F23 - BRIEF PSYCHOTIC DISORDER (2) Obsessive-compulsive disorder ICD Code: F42.9 - Obsessive-compulsive disorder, unspecified Brief History Patient is a 21-year-old Afro-Lithuanian male comes in under Trejo act from [facility] signed by Dr. Jaylon Castro dated 09/10/17 at 1600 hrs. that document reviewed initially stating that patient states increased anxiety states he doesn't feel safe around himself the is concerned the devil is going to get him. And toxicology at that facility positive for benzodiazepines. Rigid patient seen a Dr. Aston Gold earlier this month. Patient discharged with diagnosis of OCD. Patient does exhibit some compulsive behaviors or obsessive traits. However patient also had multiple visits of [facility]. In fact he was there prior to coming under Dr. Gold care. Today patient sitting was room somewhat anxious and tense nurse thaddeus present throughout session he describes anxiety with nervousness and tension. He had an episode of chanting a spiritual type she and basically telling the devil to leave him. This was repeated 4-5 times in a row and then he would calm. He also had episodes of what appear to be significant thought blocking distractibility glancing over the right shoulder as if responding to internal stimuli. Mini-Mental the stomach who patient does be criteria for further observation and assessment we'll start the patient on Lexapro address the obsessive compulsive component of this. Will refrain from any other typical antipsychotics and observe. Patient did not allow me talk his mother to gain further information Tobacco Use In Past 30 Days: No Tobacco Past 30 Days Alcohol Use: Never Hospital Course Patient was admitted to a locked, inpatient psychiatric unit. Appropriate precautions were in place throughout patient's hospital stay. Patient was seen and examined on the unit by psychiatry and also visited by counselor. Psychotropic medications were adjusted. Patient was agreeable to titration of his Lexapro but was resistant to addition of any antipsychotic or other medications. The patient had improvement in presenting psychiatric symptomatology during the course of his hospital stay. There was no evidence of any suicidality or homicidality on the inpatient unit. On the day of discharge: Patient seen and examined with nurse. Chart reviewed. Case discussed with nursing staff. Case discussed with counselor who reports that patient's mother is agreeable to receiving him home today. On my examination today, the patient is requesting discharge from the inpatient psychiatric unit today. He denies any suicidal or homicidal ideation, intent or plan on direct questioning and contracts for safety. I can elicit no depressive or hypomanic/ manic symptoms. He reports that his obsessional thoughts are "way better" than at admission. He denies any audiovisual hallucinations but remains somewhat internally preoccupied. No reported command auditory hallucinations. No delusional material elicited. He continues to decline an antipsychotic. He denies side effects from medications. No physical complaints. Suicide and violence risk assessment on day of discharge both suggest lower imminent risk and the patient's level of function is adequate for outpatient care. The patient does not meet criteria for involuntary psychiatric hospitalization presently and is requesting discharge from the inpatient psychiatric unit today. I have no basis to retain him over his objection. He will be discharged home today with psychiatric follow-up as arranged by counselor. Patient is also to follow-up with primary care. I counseled the patient to abstain from any substances of abuse. I counseled the patient regarding warning signs for need to return to the psychiatric emergency room as part of a general safety plan. Results Blood Pressure 121 / 58 Vital Signs Date Time Temp Pulse Resp B/P (MAP) Pulse Ox O2 Delivery O2 Flow Rate FiO2 09/21/17 06:07 97.8 99 18 121/58 (79) 98 Labs obtained at outside hospital Summary of Procedures None done Imaging None done Pending results at discharge: No Medications # of Antipsychotic meds at D/C: 0 Approp Antipsych med options 1 - Minimum of three failed multiple trials of monotherapy. 2 - Documented plan to taper to monotherapy due to previous use of multiple meds OR cross-taper in progress at D/C. 3 - Documentation of augmentation of Clozapine. 4 - Justification other than those listed in allowable values 1-3, document here : Discharge Discharge Date: Sep 21, 2017 Discharge Diagnosis: (1) Obsessive-compulsive disorder with absent insight or delusional beliefs Diagnosis: Principal (improved versus admission) ICD Code: F42.9 - Obsessive-compulsive disorder, unspecified Pt Condition on Discharge: Fair Discharge Disposition: Discharge Home Discharge Instructions Diet Instructions: As Tolerated, No Restrictions Activities you can perform: Weight Bearing as Koby Scheduled Appointment: Sathish Stallworth Edilma Appointment Date: Sep 22, 2017 Appointment Time: 07:30am New Medications: Escitalopram (Escitalopram) 10 Mg Tab 30 MG PO DAILY for Mental Health for 15 Days, #45 TAB 1 Refill Metoprolol Tartrate (Metoprolol Tartrate) 25 Mg Tab 25 MG PO DAILY for Health for 15 Days, #15 TAB 1 Refill Discharge Time <= 30 minutes Mental Status Examination Appearance: Appropriate Consciousness: Alert Orientation: x4 Motor Activity: Normal gait, Other (no abnormal motor movements noted) Speech: Unremarkable Language: Adequate Fund of Knowledge: Adequate Attention and Concentration: Adequate Memory: Unremarkable Mood: Appropriate Affect: Appropriate Thought Process & Associations: Intact, Linear Thought Content: Obsessions (considerably decreased versus admission) Hallucination Type: Other (denies AVH but does appear somewhat internally preoccupied) Delusion Type: None Suicidal Ideation: No Suicidal Plan: No Suicidal Intention: No Homicidal Ideation: No Homicidal Plan: No Homicidal Intention: No Insight: Fair Judgment: Adequate (fair) Discharge/Advance Care Plan Health Problems: (1) Obsessive-compulsive disorder with absent insight or delusional beliefs Goals to promote your health * To prevent worsening of your condition and complications * To maintain your health at the optimal level Directions to meet your goals Take your medications as prescribed Follow your dietary instruction Follow activity as directed Keep your appointments as scheduled Take your immunizations and boosters as scheduled If your symptoms worsen call your PCP, if no PCP go to Urgent Care Center or Emergency Room For 09/03 questions related to your inpatient stay or results of tests pending at discharge, please contact Dr. Aston Gold at Smoking is Dangerous to Your Health. Avoid second hand smoking Aston Gold MD Sep 21, 2017 11:38
== END 2017-09-21 17:15 | disposition home or self-care (01) | DRG 885 ==
LOC: H260 16:52
PROVIDERS: ADMIT Psychiatry & Neurology Psychiatry; ATTEND Psychiatry & Neurology Psychiatry
DX: F23 Brief psychotic disorder (principal); R45.851 Suicidal ideations; F42.9 Obsessive-compulsive disorder, unspecified
CPT/HCPCS: 93005

== ENCOUNTER 2017-09-23 18:36 | Emergency (ER) | payer OTHER ==
[~2017-09-23] VITALS: Ht 177.8 cm; Wt 67.0 kg
[~2017-09-23 18:36] MED LIST: ESCI10TA PO; METO25TA3 PO
[2017-09-23 18:37] VITALS: BP 120/68; PULSE 74; RESP 16; TEMP 98.2; O2SAT 100
[2017-09-23 21:24] LABS: AUTOMATED NEUTROPHIL # 5.9 TH/MM3 (1.8-7.7); BASOPHIL % 0.6 % (0.0-2.0); EOSINOPHIL % 0.4 % (0.0-4.0); HEMATOCRIT 41.9 % (39.0-51.0); HEMOGLOBIN 14.5 GM/DL (13.0-17.0); LYMPH % 23.4 % (9.0-44.0); MEAN CELL VOLUME 88.1 FL (80.0-100.0); MEAN CORPUSCULAR HEMOGLOBIN 30.4 PG (27.0-34.0); MEAN CORPUSCULAR HGB CONC 34.5 % (32.0-36.0); MEAN PLATELET VOLUME 7.5 FL (7.0-11.0); MONO % 5.9 % (0.0-8.0); MONOCYTE # 0.5 TH/MM3 (0-0.9); NEUT % 69.7 % (16.0-70.0); PLATELET COUNT 261 TH/MM3 (150-450); RED BLOOD COUNT 4.75 MIL/MM3 (4.50-5.90); RED CELL DISTRIBUTION WIDTH 12.7 % (11.6-17.2); WHITE BLOOD COUNT 8.5 TH/MM3 (4.0-11.0)
[2017-09-23 21:48] LABS: ALBUMIN 4.6 GM/DL (3.4-5.0); AST (GOT) 13 U/L (15-37); BICARBONATE 31.3 MEQ/L (21.0-32.0); BLOOD UREA NITROGEN 18 MG/DL (7-18); CALCIUM 9.6 MG/DL (8.5-10.1); CHLORIDE 103 MEQ/L (98-107); CREATININE 0.96 MG/DL (0.60-1.30); GLOMERULAR FILTRATION RATE 118 ML/MIN (>89); GLUCOSE,RANDOM 91 MG/DL (74-106); SODIUM (NA) 139 MEQ/L (136-145)
[2017-09-23 21:59] LABS: ALKALINE PHOSPHATASE 56 U/L (45-117); ALT (GPT) 19 U/L (12-78); TOTAL BILIRUBIN ADULT 0.6 MG/DL (0.2-1.0); TOTAL PROTEIN 7.7 GM/DL (6.4-8.2)
--- NOTE | 2017-09-24 09:07 | PD ---
Physical Exam Date Seen by Provider: Sep 23, 2017 Time Seen by Provider: 18:58 Narrative 22-year-old male presents to the emergency Department voluntarily for psychiatric evaluation. Data Data Last Documented VS Vital Signs Date Time Temp Pulse Resp B/P (MAP) Pulse Ox O2 Delivery O2 Flow Rate FiO2 09/23/17 18:37 98.2 74 16 120/68 (85) 100 Room Air Orders Orders Complete Blood Count With Diff (09/23/17 18:59) Comprehensive Metabolic Panel (09/23/17 18:59) Thyroid Stimulating Hormone (09/23/17 18:59) Psych Screen (09/23/17 18:59) Drug Screen, Random Urine (09/23/17 18:59) Alcohol (Ethanol) (09/23/17 18:59) Labs Laboratory Tests Test 09/23/17 20:40 White Blood Count 8.5 TH/MM3 Red Blood Count 4.75 MIL/MM3 Hemoglobin 14.5 GM/DL Hematocrit 41.9 % Mean Corpuscular Volume 88.1 FL Mean Corpuscular Hemoglobin 30.4 PG Mean Corpuscular Hemoglobin Concent 34.5 % Red Cell Distribution Width 12.7 % Platelet Count 261 TH/MM3 Mean Platelet Volume 7.5 FL Neutrophils (%) (Auto) 69.7 % Lymphocytes (%) (Auto) 23.4 % Monocytes (%) (Auto) 5.9 % Eosinophils (%) (Auto) 0.4 % Basophils (%) (Auto) 0.6 % Neutrophils # (Auto) 5.9 TH/MM3 Lymphocytes # (Auto) 2.0 TH/MM3 Monocytes # (Auto) 0.5 TH/MM3 Eosinophils # (Auto) 0.0 TH/MM3 Basophils # (Auto) 0.0 TH/MM3 CBC Comment DIFF FINAL Differential Comment Blood Urea Nitrogen 18 MG/DL Creatinine 0.96 MG/DL Random Glucose 91 MG/DL Total Protein 7.7 GM/DL Albumin 4.6 GM/DL Calcium Level 9.6 MG/DL Alkaline Phosphatase 56 U/L Aspartate Amino Transf (AST/SGOT) 13 U/L Alanine Aminotransferase (ALT/SGPT) 19 U/L Total Bilirubin 0.6 MG/DL Sodium Level 139 MEQ/L Potassium Level 4.0 MEQ/L Chloride Level 103 MEQ/L Carbon Dioxide Level 31.3 MEQ/L Anion Gap 5 MEQ/L Estimat Glomerular Filtration Rate 118 ML/MIN Thyroid Stimulating Hormone 3rd Gen 1.690 uIU/ML Ethyl Alcohol Level LESS THAN 3 MG/DL MDM Supervised Visit with LEIGH: No Narrative Course 22-year-old male presents to the emergency Department voluntarily for psychiatric evaluation. Patient is initially seen in triage and workup is initiated. Patient left AGAINST MEDICAL ADVICE before he could be moved to medical bed. Diagnosis Primary Impression: Left against medical advice Patient Instructions: General Instructions Departure Forms: Tests/Procedures Disposition: AGAINST MEDICAL ADVICE Daisha Krause Sep 24, 2017 09:07
== END 2017-09-24 00:58 | disposition left against medical advice (07) ==
LOC: NED 23:55
DX: Z00.8 Encounter for other general examination (principal); Z53.21 Procedure and treatment not carried out due to patient leaving prior to being seen by health care provider
CPT/HCPCS: 80053; 80307; 84443; 85025; 99283

== ENCOUNTER 2017-09-24 11:38 | Emergency (ER) | payer OTHER ==
[~2017-09-24] VITALS: Ht 177.8 cm; Wt 70.0 kg
[2017-09-24 11:45] VITALS: BP 116/76; PULSE 72; RESP 14; RESP 18; TEMP 98.4; O2SAT 18; O2SAT 98
--- NOTE | 2017-09-24 12:25 | PD ---
HPI Chief Complaint: Suicide Ideation/Attempt Time Seen by Provider: 12:18 Travel History International Travel<30 days: No Contact w/Intl Traveler<30days: No Traveled to known affect area: No History of Present Illness HPI 22-year-old male who reports a history of schizophrenia and anxiety presents voluntarily requesting psychiatric evaluation. He reports that for the past 2 days she has been feeling depressed, having passive suicidal thoughts without a formulated plan. He denies any homicidal ideation, auditory or visual hallucination, drug or alcohol use. He reports that he has required psychiatric hospitalization twice in the past. He has no medical complaints at this time. PFS Past Medical History Arthritis: No Asthma: No Autoimmune Disease: Yes Anxiety: No Depression: No Heart Rhythm Problems: No Cancer: No Cardiovascular Problems: No High Cholesterol: No Chemotherapy: No Chest Pain: No Congestive Heart Failure: No COPD: No Cerebrovascular Accident: No Diabetes: No Endocrine: No GERD: No Genitourinary: No Headaches: No Hiatal Hernia: No Immune Disorder: No Kidney Stones: No Musculoskeletal: No Neurologic: No Psychiatric: Yes (anxiety, OCD, ADHD) Reproductive: No Respiratory: No Migraines: No Radiation Therapy: No Renal Failure: No Seizures: No Sickle Cell Disease: No Sleep Apnea: No Thyroid Disease: No Ulcer: No Past Surgical History Abdominal Surgery: No AICD: No Arteriovenous Shunt: No Cardiac Surgery: No Ear Surgery: No Endocrine Surgery: No Eye Surgery: No Genitourinary Surgery: No Gynecologic Surgery: No Insulin Pump: No Joint Replacement: No Oral Surgery: No Pacemaker: No Thoracic Surgery: No Social History Alcohol Use: No Tobacco Use: No Substance Use: No Allergies-Medications (Allergen,Severity, Reaction): Coded Allergies: risperidone (Verified Allergy, Unknown, hallucination, 09/24/17) sertraline (Verified Allergy, Unknown, hiccups , 09/24/17) Reported Meds & Prescriptions Reported Meds & Active Scripts Active Escitalopram (Escitalopram Oxalate) 10 Mg Tab 30 Mg PO DAILY 15 Days Metoprolol Tartrate 25 Mg Tab 25 Mg PO DAILY 15 Days Review of Systems General / Constitutional: No: Fever, Chills Cardiovascular: No: Chest Pain or Discomfort Respiratory: No: Cough Musculoskeletal: No: Myalgias Skin: No Rash Neurologic: No: Weakness Psychiatric: Positive: Depression, Suicidal Ideations, No: Disorder of Thought , Mood Disorder, Substance Abuse, Homicidal Ideation Physical Exam Narrative GENERAL: Well-developed well-nourished male in no acute distress SKIN: Warm and dry. HEAD: Atraumatic. Normocephalic. EYES: Pupils equal and round. No scleral icterus. No injection or drainage. ENT: No nasal bleeding or discharge. Mucous membranes pink and moist. NECK: Trachea midline. No JVD. CARDIOVASCULAR: Regular rate and rhythm. No murmur appreciated. RESPIRATORY: No accessory muscle use. Clear to auscultation. Breath sounds equal bilaterally. GASTROINTESTINAL: Abdomen soft, non-tender, nondistended. Hepatic and splenic margins not palpable. MUSCULOSKELETAL: No obvious deformities. No clubbing. No cyanosis. No edema. NEUROLOGICAL: Awake and alert. No obvious cranial nerve deficits. Motor grossly within normal limits. Normal speech. PSYCHIATRIC: Appropriate mood and affect; insight and judgment normal. Data Data Last Documented VS Vital Signs Date Time Temp Pulse Resp B/P (MAP) Pulse Ox O2 Delivery O2 Flow Rate FiO2 09/25/17 06:42 110 18 126/67 (86) 100 Room Air 09/24/17 14:58 98.0 Orders Orders Psych Screen (09/24/17 11:57) Drug Screen, Random Urine (09/24/17 11:57) Diet Regular Basic (09/24/17 Lunch) Diet Regular Basic (09/24/17 Dinner) Diet Regular Basic (09/25/17 Breakfast) Diet Regular Basic (09/25/17 Lunch) Ed Discharge Order (09/25/17 11:04) Labs Laboratory Tests Test 09/24/17 12:07 Urine Opiates Screen NEG Urine Barbiturates Screen NEG Urine Amphetamines Screen NEG Urine Benzodiazepines Screen NEG Urine Cocaine Screen NEG Urine Cannabinoids Screen NEG MDM Medical Decision Making Medical Screen Exam Complete: Yes Emergency Medical Condition: Yes Medical Record Reviewed: Yes Differential Diagnosis Major depressive disorder, acute psychosis, substance induced mood disorder, depressive disorder not otherwise specified, schizophrenia Narrative Course 21-year-old male presents with 2 days of passive suicidal thoughts, depression. Mental health screening discussed with the patient. Psychiatric screen ordered. The patient was seen here yesterday but left AMA prior to psychiatric screening. He had lab work which was unremarkable. The patient is medically cleared for psychiatric disposition. 1105: Patient has been seen by psychiatry and cleared from their standpoint. He is following up at [facility] in 3 days. He is stable for discharge. Diagnosis Primary Impression: Depression (emotion) Med/Other Pt SpecificInfo: No Change to Meds Disposition: 01 DISCHARGE HOME Condition: Stable Elie Ghosh Sep 24, 2017 12:25
[2017-09-24 14:58] VITALS: BP 116/55; PULSE 88; RESP 18; TEMP 98; O2SAT 98
[2017-09-24 18:33] VITALS: BP 131/61; PULSE 83; RESP 18; O2SAT 99
[2017-09-24 22:18] VITALS: BP 126/58; PULSE 86; RESP 18; O2SAT 98
[2017-09-25 06:42] VITALS: BP 126/67; PULSE 110; RESP 18; O2SAT 100
--- NOTE | 2017-09-25 10:51 | PD ---
History of Present Illness Chief Complaint: Suicide Ideation/Attempt Time Seen by Provider: 10:45 Travel History International Travel<30 Days: No Contact w/Intl Traveler<30days: No Known affected area: No Legal Status Legal Status: Voluntary History of Present Illness: History of Present Illness HPI 22-year-old male with history of obsessive-compulsive disorder who presents voluntarily requesting a psychiatric evaluation. ED documentation is reviewed and include some part; " He reports that for the past 2 days she has been feeling depressed, having passive suicidal thoughts without a formulated plan." The patient reported to ED screener that he had been feeling lonely and depressed, that he had been medication compliant since his discharge from our inpatient psychiatric unit on September 21, and that he didn't feel he needed to be here in the hospital. Nevertheless the patient was kept in Jpod overnight for further evaluation and monitoring. The patient did not present any behavioral concerns and no suicidality. Electronic medical record reviewed. As stated previously the patient was discharged from our inpatient psychiatric unit on September 21. As per [facility] director of casework department the patient presented to [facility] after his discharge from our inpatient unit. Current toxicology is negative. The patient is seen with MIKE Baldwin present during interview. The patient is alert, oriented, calm, engaging and cooperative. He does not appear internally preoccupied. His speech is clear and logical. He states" I think I was just feeling depressed and lonely. I don't need to be here." Patient also tells me that since his discharge from our unit he stopped taking his medication because he felt that he didn't need to continue with the medicine. There is no suicidal or homicidal ideation, intent or plan. The patient is requesting to be discharge. I have asked [facility] director of casework department to me with the patient before he is discharge so that he can reinforce the importance of following up with [facility]. Have also requested that he contact the mother to make sure that she is supportive of the patient continuing treatment. The patient however is hesitant to have us contact his mother. PFSH Past Medical History ADHD: Yes Arthritis: No Asthma: No Autoimmune Disease: Yes Anxiety: Yes Depression: No Heart Rhythm Problems: No Cancer: No Cardiovascular Problems: No High Cholesterol: No Chemotherapy: No Chest Pain: No Congestive Heart Failure: No COPD: No Cerebrovascular Accident: No Diabetes: No Diminished Hearing: No Endocrine: No GERD: No Genitourinary: No Headaches: No Hiatal Hernia: No Heparin Induced Thrombocytopen: No Hypertension: No Immune Disorder: No Implanted Vascular Access Dvce: No Kidney Stones: No Musculoskeletal: No Neurologic: No Psychiatric: Yes (anxiety, OCD, ADHD) Reproductive: No Respiratory: No Immunizations Current: Yes Migraines: No Radiation Therapy: No Renal Failure: No Schizophrenia: Yes Seizures: No Sickle Cell Disease: No Sleep Apnea: No Thyroid Disease: No Ulcer: No Tetanus Vaccination: Unknown Influenza Vaccination: No Past Surgical History Surgical History: No Previous Surgery Abdominal Surgery: No AICD: No Arteriovenous Shunt: No Cardiac Surgery: No Ear Surgery: No Endocrine Surgery: No Eye Surgery: No Genitourinary Surgery: No Gynecologic Surgery: No Insulin Pump: No Joint Replacement: No Neurologic Surgery: No Oral Surgery: No Pacemaker: No Thoracic Surgery: No Other Surgery: No Psychiatric History Psychiatric History Hx Psychiatric Treatment: ADHD, OCD History of Inpatient Treatment: Yes (last psychiatric hospitalization September [id number] at [facility]) Guns or firearms in home: No Social History Single male, lives with his mother. Unemployed. Hx Alcohol Use: No Hx Tobacco Use: No Hx Substance Use: Yes (2 beers/once a month) Substance Use Type: Alcohol Hx of Substance Use Treatment: No Family Psychiatric History Negative Allergies-Medications (Allergen,Severity, Reaction): Coded Allergies: risperidone (Verified Allergy, Unknown, hallucination, 09/24/17) sertraline (Verified Allergy, Unknown, hiccups , 09/24/17) Reported Meds & Prescriptions Reported Meds & Active Scripts Active Escitalopram (Escitalopram Oxalate) 10 Mg Tab 30 Mg PO DAILY 15 Days Metoprolol Tartrate 25 Mg Tab 25 Mg PO DAILY 15 Days Review of Systems Psychiatric: COMPLAINS OF: Anxiety Except as stated in HPI: all other systems reviewed are Neg Mental Status Examination Appearance: Appropriate (in [facility]) Consciousness: Alert Orientation: x4 Motor Activity: Normal gait Speech: Unremarkable, Other (low-tone) Language: Adequate Fund of Knowledge: Adequate Attention and Concentration: Adequate Memory: Unremarkable Mood: Appropriate Affect: Appropriate Thought Process & Associations: Intact, Logical, Goal directed Thought Content: Appropriate Hallucination Type: None Delusion Type: None Suicidal Ideation: No Suicidal Plan: No Suicidal Intention: No Homicidal Ideation: No Homicidal Plan: No Homicidal Intention: No Insight: Poor (as evidence by noncompliance with prescribed medication) Judgment: Impulsive MDM Medical Decision Making Medical Record Reviewed: Yes Assessment/Plan 22-year-old male with history of obsessive-compulsive disorder who presents to the emergency department on a voluntary basis requesting a psychiatric evaluation. He reported to ED provider that he had been feeling depressed as well as having passive suicidal thoughts without a formulated plan. He was monitored in J pod over night with no suicidality. The patient didn't report to the ED screeners that he felt he didn't need to be here but out of overabundance of caution we kept him here overnight. This morning he is requesting to be discharge and is denying any suicidal or homicidal ideation, intent or plan. He has an appointment at [facility] on the and I have asked our director of casework department to please meet with him to reinforce this. There was some hesitancy on the patient's part to have us contact his mother to facilitate his transition to outpatient but he has some reservations about this so suspicious if he in fact did go home or not. Nevertheless this is not criteria to keep him here against his will. At this time he does not meet criteria for Trejo act. He is counseled on importance of continuing with his prescribed medication. Psychiatrically clear for discharge from ED. Orders Orders Psych Screen (09/24/17 11:57) Drug Screen, Random Urine (09/24/17 11:57) Diet Regular Basic (09/24/17 Lunch) Diet Regular Basic (09/24/17 Dinner) Diet Regular Basic (09/25/17 Breakfast) Results Vital Signs Date Time Temp Pulse Resp B/P (MAP) Pulse Ox O2 Delivery O2 Flow Rate FiO2 09/25/17 06:42 110 18 126/67 (86) 100 Room Air 09/24/17 22:18 86 18 126/58 (80) 98 Room Air 09/24/17 18:33 83 18 131/61 (84) 99 Room Air 09/24/17 14:58 98.0 88 18 116/55 (75) 98 Room Air 09/24/17 11:45 98.4 72 18 116/76 (89) 98 Laboratory Tests Test 09/24/17 12:07 Urine Opiates Screen NEG Urine Barbiturates Screen NEG Urine Amphetamines Screen NEG Urine Benzodiazepines Screen NEG Urine Cocaine Screen NEG Urine Cannabinoids Screen NEG Diagnosis Primary Impression: Obsessive-compulsive disorder Ruled Out: Depression (emotion) Psychiatrically Cleared: Yes Med/ Other Pt Specific Info: No Change to Meds Disposition: 01 DISCHARGE HOME Condition: Stable Problem Qualifiers Primary Impression: Obsessive-compulsive disorder Qualified Codes: F42.2 - Mixed obsessional thoughts and acts Laureen Richard [facility] Sep 25, 2017 10:51
== END 2017-09-25 11:34 | disposition home or self-care (01) ==
LOC: NEPJ 11:38
DX: F42.2 Mixed obsessional thoughts and acts (principal); Z79.899 Other long term (current) drug therapy
CPT/HCPCS: 80307; 99283

== ENCOUNTER 2017-09-26 14:56 | Inpatient (IN) | payer OTHER ==
[~2017-09-26] VITALS: Ht 177.8 cm; Wt 65.3 kg
[2017-09-26 14:58] VITALS: BP 122/65; PULSE 77; RESP 12; TEMP 98.8; O2SAT 97
[2017-09-26 15:21] VITALS: BP 112/57; PULSE 70; RESP 16; TEMP 97.8; O2SAT 97
--- NOTE | 2017-09-26 15:57 | PD ---
HPI Chief Complaint: Psychiatric Symptoms Time Seen by Provider: 15:24 Travel History International Travel<30 days: No Contact w/Intl Traveler<30days: No Traveled to known affect area: No History of Present Illness HPI 22-year-old male that presents to the ED for evaluation of involuntary psych evaluation. Patient comes here on his own for evaluation of stressors as well as feeling suicidal. Per patient he feels very stressed and he feels like his to kill himself he doesn't get help. He takes Lexapro and states been compliant with this. Has a history of anxiety and schizoaffective disorder. He has been here about 3 times the past couple of days for similar symptoms. He was actually released yesterday. Per patient he doesn't feel improved. Patient has a history of OCD apparently as well per records. He denies any chest or shortness of breath. No urinary or bowel movement issues. No cuts. Denies any actual plan the states that he has thoughts of hurting himself. He would not really tell me what his stressors are but they appear to be worsening for the past couple of days. Denies any drugs or alcohol. PFSH Past Medical History ADHD: Yes Arthritis: No Asthma: No Autoimmune Disease: Yes Anxiety: Yes Depression: No Heart Rhythm Problems: No Cancer: No Cardiovascular Problems: No High Cholesterol: No Chemotherapy: No Chest Pain: No Congestive Heart Failure: No COPD: No Cerebrovascular Accident: No Diabetes: No Diminished Hearing: No Endocrine: No GERD: No Genitourinary: No Headaches: No Hiatal Hernia: No Heparin Induced Thrombocytopen: No Hypertension: No Immune Disorder: No Implanted Vascular Access Dvce: No Kidney Stones: No Musculoskeletal: No Neurologic: No Psychiatric: Yes (anxiety, OCD, ADHD) Reproductive: No Respiratory: No Immunizations Current: Yes Migraines: No Radiation Therapy: No Renal Failure: No Schizophrenia: Yes Seizures: No Sickle Cell Disease: No Sleep Apnea: No Thyroid Disease: No Ulcer: No Past Surgical History Abdominal Surgery: No AICD: No Arteriovenous Shunt: No Cardiac Surgery: No Ear Surgery: No Endocrine Surgery: No Eye Surgery: No Genitourinary Surgery: No Gynecologic Surgery: No Insulin Pump: No Joint Replacement: No Neurologic Surgery: No Oral Surgery: No Pacemaker: No Thoracic Surgery: No Other Surgery: No Social History Alcohol Use: No Tobacco Use: No Substance Use: Yes (2 beers/once a month) Allergies-Medications (Allergen,Severity, Reaction): Coded Allergies: risperidone (Verified Allergy, Unknown, hallucination, 09/24/17) sertraline (Verified Allergy, Unknown, hiccups , 09/24/17) Reported Meds & Prescriptions Reported Meds & Active Scripts Active Escitalopram (Escitalopram Oxalate) 10 Mg Tab 30 Mg PO DAILY 15 Days Metoprolol Tartrate 25 Mg Tab 25 Mg PO DAILY 15 Days Review of Systems Except as stated in HPI: all other systems reviewed are Neg Physical Exam Narrative GENERAL: SKIN: Warm and dry. HEAD: Atraumatic. Normocephalic. EYES: Pupils equal and round. No scleral icterus. No injection or drainage. ENT: No nasal bleeding or discharge. Mucous membranes pink and moist. NECK: Trachea midline. No JVD. CARDIOVASCULAR: Regular rate and rhythm. RESPIRATORY: No accessory muscle use. Clear to auscultation. Breath sounds equal bilaterally. GASTROINTESTINAL: Abdomen soft, non-tender, nondistended. Hepatic and splenic margins not palpable. MUSCULOSKELETAL: Extremities without clubbing, cyanosis, or edema. No obvious deformities. Full range of motion of the upper and lower extremities bilaterally. 2+ pulses bilaterally. NEUROLOGICAL: Awake and alert. No obvious cranial nerve deficits. Motor grossly within normal limits. Five out of 5 muscle strength in the arms and legs. Normal speech. PSYCHIATRIC: Appropriate mood and affect; insight and judgment normal. Data Data Last Documented VS Vital Signs Date Time Temp Pulse Resp B/P (MAP) Pulse Ox O2 Delivery O2 Flow Rate FiO2 09/26/17 15:21 97.8 70 16 112/57 (75) 97 Room Air MDM Medical Decision Making Medical Screen Exam Complete: Yes Emergency Medical Condition: Yes Medical Record Reviewed: Yes Differential Diagnosis Depression versus suicidal ideation versus anxiety versus adjustment disorder versus mood disorder versus bipolar disorder versus schizophrenia versus paranoid disorder versus psychosis versus substance abuse versus alcohol abuse versus alcohol induced psychosis versus homicidality addition versus cutting versus personality disorder Narrative Course 22-year-old male that presents to the ED for evaluation of psych. Patient was properly examined and was found to have signs and symptoms consistent with psychiatric illness. Sign of acute medical distress. Patient had bloodwork just 2 days ago that were negative. At this time and do recommend any further blood work. Patient will be medically clear. Okay to be seen by psych. Mental health screening was discussed with the patient. Diagnosis Primary Impression: Obsessive-compulsive disorder Qualified Codes: F42.9 - Obsessive-compulsive disorder, unspecified Dwayne Cote Sep 26, 2017 15:57
--- NOTE | 2017-09-26 17:34 | PD ---
History of Present Illness Chief Complaint: Psychiatric Symptoms Time Seen by Provider: 16:40 Travel History International Travel<30 Days: No Contact w/Intl Traveler<30days: No Known affected area: No Legal Status Legal Status: Voluntary History of Present Illness: History of Present Illness HPI 22-year-old male with history of obsessive-compulsive disorder that presents to the ED on a voluntary basis requesting a psychiatric evaluation. Patient complains that he has been feeling very stressed and has been "over thinking things". He reported to ED provider that he was feeling like he wanted to kill himself if he doesn't get any help. The patient was admitted to our inpatient psychiatry unit on September 11 and discharged September 21. He was discharged to the care of his mother and [place] and as per communication from the mother he has been staying at the house and has been taking his medication. Since his discharge the patient resented to [facility] and was there over night. On September 23 he came to the emergency room requesting a psychiatric evaluation and left AMA. He later returned that same date and was monitored overnight. At that time he reported that he was not taking his medication. He did not meet criteria for inpatient psychiatric treatment and was discharge once again to the care of his mother. The patient denies that he uses any substances. He is seen in [facility]. He is eating his dinner at this time. He is dressed in [facility] and with fair hygiene and grooming. His speech is clear. He does not appear internally stimulated or internally preoccupied. He smiles inappropriately as he states that he feels stressed, not functioning well and that he needs to be on our inpatient unit for stabilization. When he is confronted with the fact that he refused medication our inpatient unit he states that he is now ready to begin medication that can help him. He does not present suicidal ideation to this policy writer typist. [facility] Past Medical History ADHD: Yes Arthritis: No Asthma: No Autoimmune Disease: Yes Anxiety: Yes Depression: No Heart Rhythm Problems: No Cancer: No Cardiovascular Problems: No High Cholesterol: No Chemotherapy: No Chest Pain: No Congestive Heart Failure: No COPD: No Cerebrovascular Accident: No Diabetes: No Patient Takes Glucophage: No Diminished Hearing: No Endocrine: No GERD: No Genitourinary: No Headaches: No Hiatal Hernia: No Heparin Induced Thrombocytopen: No Hypertension: No Immune Disorder: No Implanted Vascular Access Dvce: No Kidney Stones: No Musculoskeletal: No Neurologic: No Psychiatric: Yes (anxiety, OCD, ADHD) Reproductive: No Respiratory: No Immunizations Current: Yes Migraines: No Radiation Therapy: No Renal Failure: No Schizophrenia: Yes Seizures: No Sickle Cell Disease: No Sleep Apnea: No Thyroid Disease: No Ulcer: No Tetanus Vaccination: Unknown ?: Not Past Surgical History Surgical History: No Previous Surgery Abdominal Surgery: No AICD: No Arteriovenous Shunt: No Cardiac Surgery: No Ear Surgery: No Endocrine Surgery: No Eye Surgery: No Genitourinary Surgery: No Gynecologic Surgery: No Insulin Pump: No Joint Replacement: No Neurologic Surgery: No Oral Surgery: No Pacemaker: No Thoracic Surgery: No Other Surgery: No Psychiatric History Psychiatric History Hx Psychiatric Treatment: ADHD, OCD. Has had several admissions to our psychiatric inpatient unit with the last one being in September 11, 2016. Patient was scheduled to follow-up at [facility] on September 28 History of Inpatient Treatment: Yes Guns or firearms in home: No Social History Single, unemployed male who lives with his mother in [facility]. He had been on Social Security disability up until the summer where it was terminated. Hx Alcohol Use: No Hx Tobacco Use: No Hx Substance Use: Yes (2 beers/once a month) Substance Use Type: Alcohol Hx of Substance Use Treatment: No Family Psychiatric History Negative Allergies-Medications (Allergen,Severity, Reaction): Coded Allergies: risperidone (Verified Allergy, Unknown, hallucination, 09/24/17) sertraline (Verified Allergy, Unknown, hiccups , 09/24/17) Reported Meds & Prescriptions Reported Meds & Active Scripts Active Escitalopram (Escitalopram Oxalate) 10 Mg Tab 30 Mg PO DAILY 15 Days Metoprolol Tartrate 25 Mg Tab 25 Mg PO DAILY 15 Days Review of Systems Psychiatric: COMPLAINS OF: Anxiety Except as stated in HPI: all other systems reviewed are Neg Mental Status Examination Appearance: Appropriate Consciousness: Alert Orientation: x4 Motor Activity: Normal gait Speech: Unremarkable Language: Adequate Fund of Knowledge: Adequate Attention and Concentration: Adequate Memory: Unremarkable Mood: Anxious Affect: Other (inappropriate smiling at times.) Thought Process & Associations: Intact Thought Content: Obsessions (does not disclose at this time) MDM Medical Decision Making Medical Record Reviewed: Yes Assessment/Plan 22-year-old [place] male with history of obsessive-compulsive disorder who presents to the ED on a voluntary status with complaints of feeling depressed, suicidal thoughts, over thinking things. Patient was discharged from inpatient psychiatry unit on September 21 and since that date this is his third presentation to the ED for evaluation. In addition the patient went to [facility] where he remained overnight. Today he tells me that he has been compliant with his medication but on previous visit to the ED he had reported that he was not taking the medication that was prescribed to him upon his discharge. The patient presents with inappropriate affect and oddly related. Due to the patient's continued complaints of visits to the emergency room he will be admitted to inpatient psychiatry for further observation, for safety and for stabilization. He also states that he wants to be started on medication to help him with his thoughts. This is a change from a his last admission in which he refused to consider antipsychotic medication. Orders Orders Diet Regular Basic (09/26/17 Dinner) Results Vital Signs Date Time Temp Pulse Resp B/P (MAP) Pulse Ox O2 Delivery O2 Flow Rate FiO2 09/26/17 15:21 97.8 70 16 112/57 (75) 97 Room Air 09/26/17 14:58 98.8 77 12 122/65 (84) 97 Diagnosis Primary Impression: Obsessive-compulsive disorder Admitting Information Admitting Physician Requests: Admit Problem Qualifiers Primary Impression: Obsessive-compulsive disorder Qualified Codes: F42.9 - Obsessive-compulsive disorder, unspecified Laureen Richard Sep 26, 2017 17:34
[2017-09-26] MEDS ORDERED: MAGNESIUM HYDROXIDE SUSP 30 ML CUP PO PRN (17:45)
[2017-09-26] MEDS ORDERED: ALUMINUM/MAGNESIUM/SIMETH 30 ML CUP PO PRN (17:45)
[2017-09-26] MEDS ORDERED: ACETAMINOPHEN 325 MG TAB PO PRN (17:45)
[2017-09-26 20:36] VITALS: BP 118/61; PULSE 62; RESP 19; TEMP 98; O2SAT 98
[2017-09-27 05:44] VITALS: BP 123/60; PULSE 69; RESP 16; TEMP 98; O2SAT 98
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
[2017-09-27] MEDS: METOPROLOL TARTRATE 25 MG TAB PO SCH (09:39)
[2017-09-27] MEDS: ESCITALOPRAM OXALATE 10 MG TAB PO SCH (09:39)
[2017-09-27 11:01] LABS: BICARBONATE 33.4 MEQ/L (21.0-32.0); BLOOD UREA NITROGEN 18 MG/DL (7-18); CALCIUM 9.1 MG/DL (8.5-10.1); CHLORIDE 102 MEQ/L (98-107); CHOLESTEROL 88 MG/DL (120-200); CREATININE 1.02 MG/DL (0.60-1.30); GLOMERULAR FILTRATION RATE 110 ML/MIN (>89); GLUCOSE,RANDOM 86 MG/DL (74-106); SODIUM (NA) 139 MEQ/L (136-145); TRIGLYCERIDES 50 MG/DL (42-150)
[2017-09-27 11:03] LABS: CHOLESTEROL/ HDL RATIO 1.77 RATIO; HDL CHOLESTEROL 49.6 MG/DL (40.0-60.0); LDL CHOLESTEROL 28 MG/DL (0-99)
[2017-09-27 11:39] LABS: AUTOMATED NEUTROPHIL # 2.3 TH/MM3 (1.8-7.7); BASOPHIL # 0.1 TH/MM3 (0-0.2); BASOPHIL % 1.2 % (0.0-2.0); EOSINOPHIL % 0.7 % (0.0-4.0); HEMOGLOBIN 14.7 GM/DL (13.0-17.0); LYMPH % 36.1 % (9.0-44.0); LYMPHOCYTE # 1.5 TH/MM3 (1.0-4.8); MEAN CELL VOLUME 88.5 FL (80.0-100.0); MEAN CORPUSCULAR HEMOGLOBIN 30.1 PG (27.0-34.0); MEAN PLATELET VOLUME 7.5 FL (7.0-11.0); MONO % 7.8 % (0.0-8.0); MONOCYTE # 0.3 TH/MM3 (0-0.9); NEUT % 54.2 % (16.0-70.0); PLATELET COUNT 230 TH/MM3 (150-450); RED BLOOD COUNT 4.86 MIL/MM3 (4.50-5.90); RED CELL DISTRIBUTION WIDTH 12.6 % (11.6-17.2); WHITE BLOOD COUNT 4.3 TH/MM3 (4.0-11.0)
[2017-09-27 12:56] LABS: HEMOGLOBIN A1C 5.6 % (4.3-6.0)
--- NOTE | 2017-09-27 16:42 | EKG ---
Date Performed: 09/27/2017 Time Performed: 09:55:01 PTAGE: 22 years EKG: Sinus rhythm ST ELEVATION, PROBABLY EARLY REPOLARIZATION BORDERLINE ECG PREVIOUS TRACING : 09/12/2017 10.51 Since the prior tracing, there has been no significant raines DOCTOR: Alan Lo Interpretating Date/Time 09/27/2017 16:39:32
[2017-09-27] MEDS ORDERED: OLANZapine 5 MG TAB PO SCH (21:00)
[2017-09-28 05:44] VITALS: BP 116/62; PULSE 70; RESP 17; TEMP 98; O2SAT 100
--- NOTE | 2017-09-28 09:14 | HHI.PYPN ---
Subjective Remarks Patient seen and examined with nurse. Chart reviewed. Case discussed with nursing staff. Patient noted to exhibit some bizarre behavior overnight. Case discussed with counselor who notes that she received a call from patient following his discharge from the inpatient psychiatric unit last time and based on the tenor of that message she suspects there may be a component of attention seeking to patient's presentation. On my examination today, the patient is quite discharge focused. His affect is somewhat more reactive than I have noted in the past. He seems more irritable. He denies any suicidal ideation 3 days. He does admit to feeling "a little bit depressed." He says that his efforts to get himself hospitalized this time was "more of a lonely thing" then secondary to any genuine psychiatric distress. He becomes quite agitated when I suggest that he remain on the unit for further observation since he required rapid rehospitalization. I have reminded him of his right to complete a right of release should he wish to request discharge. He denies side effects from medications. No physical complaints. Review of Systems Except as stated in HPI: all other systems reviewed are Neg Mental Status Examination Appearance: Appropriate Consciousness: Alert Orientation: x4 Motor Activity: Normal gait, Other (no motor abnormalities noted) Speech: Unremarkable Language: Adequate Fund of Knowledge: Adequate Attention and Concentration: Adequate Memory: Unremarkable Mood: Anxious Affect: Anxious Thought Process & Associations: Intact Thought Content: Other (perseverative on discharge) Hallucination Type: Other (denies AVH but does appear a little internally preoccupied) Delusion Type: None Suicidal Ideation: No Suicidal Plan: No Suicidal Intention: No Homicidal Ideation: No Homicidal Plan: No Homicidal Intention: No Insight: Fair Judgment: Impulsive Results Labs Test 09/27/17 10:10 White Blood Count 4.3 TH/MM3 Red Blood Count 4.86 MIL/MM3 Hemoglobin 14.7 GM/DL Hematocrit 43.0 % Mean Corpuscular Volume 88.5 FL Mean Corpuscular Hemoglobin 30.1 PG Mean Corpuscular Hemoglobin Concent 34.0 % Red Cell Distribution Width 12.6 % Platelet Count 230 TH/MM3 Mean Platelet Volume 7.5 FL Neutrophils (%) (Auto) 54.2 % Lymphocytes (%) (Auto) 36.1 % Monocytes (%) (Auto) 7.8 % Eosinophils (%) (Auto) 0.7 % Basophils (%) (Auto) 1.2 % Neutrophils # (Auto) 2.3 TH/MM3 Lymphocytes # (Auto) 1.5 TH/MM3 Monocytes # (Auto) 0.3 TH/MM3 Eosinophils # (Auto) 0.0 TH/MM3 Basophils # (Auto) 0.1 TH/MM3 CBC Comment DIFF FINAL Differential Comment Blood Urea Nitrogen 18 MG/DL Creatinine 1.02 MG/DL Random Glucose 86 MG/DL Calcium Level 9.1 MG/DL Sodium Level 139 MEQ/L Potassium Level 4.0 MEQ/L Chloride Level 102 MEQ/L Carbon Dioxide Level 33.4 MEQ/L Anion Gap 4 MEQ/L Estimat Glomerular Filtration Rate 110 ML/MIN Hemoglobin A1c 5.6 % Triglycerides Level 50 MG/DL Cholesterol Level 88 MG/DL LDL Cholesterol 28 MG/DL HDL Cholesterol 49.6 MG/DL Cholesterol/HDL Ratio 1.77 RATIO Thyroid Stimulating Hormone 3rd Gen 0.899 uIU/ML Admission labs reviewed. Vitals/IOs Vital Signs Date Time Temp Pulse Resp B/P (MAP) Pulse Ox O2 Delivery O2 Flow Rate FiO2 09/28/17 05:44 98.0 70 17 116/62 (80) 100 09/26/17 15:21 Room Air Assessment & Plan Problem List: (1) Obsessive-compulsive disorder with absent insight or delusional beliefs ICD Codes: F42.9 - Obsessive-compulsive disorder, unspecified Assessment & Plan Titrate Zyprexa to 7.5 mg at bedtime to target residual symptoms. Continue Lexapro as ordered. Continue to monitor on inpatient unit. Continue other medications and care as ordered. Justification for Cont. Inpt. Med changes. Risk for decompensation in less restrictive environment. Discharge Planning Pending psychiatric stabilization Request HC Surrog/Guard Advoc?: No Aston Gold MD Sep 28, 2017 09:14
[2017-09-28] MEDS: METOPROLOL TARTRATE 25 MG TAB PO SCH (09:32)
[2017-09-28] MEDS: ESCITALOPRAM OXALATE 10 MG TAB PO SCH (09:32)
[2017-09-28] MEDS ORDERED: PILL SPLITTER OTHER PRN (10:00)
[2017-09-28 17:28] VITALS: BP 118/58; PULSE 76; RESP 18; TEMP 98.6; O2SAT 100
[2017-09-28] MEDS ORDERED: OLANZapine 5 MG TAB PO SCH (21:00)
[2017-09-29 05:38] VITALS: BP 120/57; PULSE 78; RESP 16; TEMP 97.6; O2SAT 94
[2017-09-29] MEDS: ESCITALOPRAM OXALATE 10 MG TAB PO SCH (08:54)
[2017-09-29] MEDS: METOPROLOL TARTRATE 25 MG TAB PO SCH (08:54)
--- NOTE | 2017-09-29 12:24 | HHI.PYPN ---
Subjective Remarks Patient seen and examined with nurse and nurse practitioner. Chart reviewed. Case discussed with nursing staff who reports patient has largely been seclusive to room. Charting indicates that the patient ate 100% of meals and slept 7 hours overnight. Case discussed in treatment team. Patient noted by therapist to attend select groups. On my examination today, the patient denies any suicidal or homicidal ideation. He denies any obsessional thinking and in particular denies any intrusive thoughts about raping people. No reported psychotic symptoms, although the patient does appear somewhat internally stimulated. Denies side effects from medications. No physical complaints. Review of Systems ROS Limitations: Psychotic (decreasing), Poor Historian Except as stated in HPI: all other systems reviewed are Neg Mental Status Examination Appearance: Appropriate Consciousness: Alert Orientation: x4 Motor Activity: Normal gait, Other (no abnormal motor movements noted) Speech: Unremarkable Language: Adequate Fund of Knowledge: Adequate Attention and Concentration: Adequate Memory: Unremarkable Mood: Anxious Affect: Anxious Thought Process & Associations: Intact Thought Content: Other (remains perseverative on discharge) Hallucination Type: Other (denies AVH but still does appear a little internally preoccupied) Delusion Type: None Suicidal Ideation: No Suicidal Plan: No Suicidal Intention: No Homicidal Ideation: No Homicidal Plan: No Homicidal Intention: No Insight: Fair Judgment: Impulsive Results Labs Labs reviewed. Vitals/IOs Vital Signs Date Time Temp Pulse Resp B/P (MAP) Pulse Ox O2 Delivery O2 Flow Rate FiO2 09/29/17 05:38 97.6 78 16 120/57 (78) 94 09/26/17 15:21 Room Air Assessment & Plan Problem List: (1) Obsessive-compulsive disorder with absent insight or delusional beliefs ICD Codes: F42.9 - Obsessive-compulsive disorder, unspecified Assessment & Plan Titrate Abilify to 10 mg at bedtime to target residual symptoms. Continue to monitor on the inpatient unit. Continue other medications and care as ordered. Counselor to try to reach out to the patient's mother for collateral. Justification for Cont. Inpt. Med changes. Risk for decompensation in less restrictive environment. Discharge Planning Pending psychiatric stabilization. Request HC Surrog/Guard Advoc?: No Aston Gold MD Sep 29, 2017 12:24
[2017-09-29 18:26] VITALS: BP 141/65; PULSE 107; RESP 18; TEMP 98.6; O2SAT 98
[2017-09-29] MEDS ORDERED: OLANZapine 10 MG TAB PO SCH (21:00)
[2017-09-30 06:03] VITALS: BP 117/69; PULSE 71; RESP 18; TEMP 97.5; O2SAT 99
[2017-09-30] MEDS ORDERED: OLAN10TA PO (08:59)
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
[2017-09-30] MEDS: METOPROLOL TARTRATE 25 MG TAB PO SCH (09:00)
[2017-09-30] MEDS: ESCITALOPRAM OXALATE 10 MG TAB PO SCH (09:00)
== END 2017-09-30 14:00 | disposition left against medical advice (07) | DRG 885 ==
LOC: NEPJ 14:56 → NEDA 17:45 → H270 19:50
PROVIDERS: ADMIT Psychiatry & Neurology Psychiatry; ATTEND Psychiatry & Neurology Psychiatry
DX: F25.1 Schizoaffective disorder, depressive type (principal); R45.851 Suicidal ideations; F41.9 Anxiety disorder, unspecified; F42.9 Obsessive-compulsive disorder, unspecified; F90.9 Attention-deficit hyperactivity disorder, unspecified type; Z91.14 Patient's other noncompliance with medication regimen; Z91.19 Patient's noncompliance with other medical treatment and regimen; Z91.410 Personal history of adult physical and sexual abuse
CPT/HCPCS: 80048; 80061; 80307; 83036; 84443; 85025; 93005

== ENCOUNTER 2017-10-01 18:57 | Emergency (ER) | payer SELFPAY ==
[~2017-10-01] VITALS: Ht 177.8 cm; Wt 67.0 kg
[~2017-10-01 18:57] MED LIST changes: +OLAN10TA PO
[2017-10-01 18:59] VITALS: BP 181/74; PULSE 87; RESP 16; TEMP 98.2; O2SAT 100
--- NOTE | 2017-10-01 23:26 | PD ---
HPI Chief Complaint: Depression Time Seen by Provider: 23:02 Travel History International Travel<30 days: No Contact w/Intl Traveler<30days: No Traveled to known affect area: No History of Present Illness HPI Patient is a 22-year-old male with history of schizophrenia presents emergency department with depression and states "I want to be Trejo acted". He states he was told to say this so that he would see a psychiatrist. He was actually just released from this institution yesterday from inpatient psychiatric [facility] AGAINST MEDICAL ADVICE. Patient will not discuss further with me the reasons for him being here but states he is feeling very jittery and the voices are getting out of control. He denies any physical complaints at this time, denies any headache neck pain back pain chest pain abdomen pain or extremity pain. States symptoms have been gradually worsening ever since he left the hospital yesterday, associated signs and symptoms as above, symptoms are moderate to PFSH Past Medical History ADHD: Yes Arthritis: No Asthma: No Autoimmune Disease: Yes Anxiety: Yes Depression: No Heart Rhythm Problems: No Cancer: No Cardiovascular Problems: Yes (HTN) High Cholesterol: No Chemotherapy: No Chest Pain: No Congestive Heart Failure: No COPD: No Cerebrovascular Accident: No Diabetes: No Diminished Hearing: No Endocrine: No GERD: No Genitourinary: No Headaches: No Hiatal Hernia: No Heparin Induced Thrombocytopen: No Hypertension: No Immune Disorder: No Implanted Vascular Access Dvce: No Kidney Stones: No Musculoskeletal: No Neurologic: No Psychiatric: Yes (anxiety, OCD, ADHD) Reproductive: No Respiratory: No Immunizations Current: Yes Migraines: No Radiation Therapy: No Renal Failure: No Schizophrenia: Yes Seizures: No Sickle Cell Disease: No Sleep Apnea: No Thyroid Disease: No Ulcer: No Tetanus Vaccination: < 5 Years Influenza Vaccination: No Past Surgical History Surgical History: No Previous Surgery Abdominal Surgery: No AICD: No Arteriovenous Shunt: No Cardiac Surgery: No Ear Surgery: No Endocrine Surgery: No Eye Surgery: No Genitourinary Surgery: No Gynecologic Surgery: No Insulin Pump: No Joint Replacement: No Neurologic Surgery: No Oral Surgery: No Pacemaker: No Thoracic Surgery: No Other Surgery: No Social History Alcohol Use: No Tobacco Use: No Substance Use: No Allergies-Medications (Allergen,Severity, Reaction): Coded Allergies: risperidone (Verified Allergy, Unknown, hallucination, 09/24/17) sertraline (Verified Allergy, Unknown, hiccups , 09/24/17) Reported Meds & Prescriptions Reported Meds & Active Scripts Active Olanzapine 10 Mg Tab 10 Mg PO HS 10 Days Escitalopram (Escitalopram Oxalate) 10 Mg Tab 30 Mg PO DAILY 15 Days Metoprolol Tartrate 25 Mg Tab 25 Mg PO DAILY 15 Days Review of Systems Except as stated in HPI: all other systems reviewed are Neg Physical Exam Narrative GENERAL: Well-developed, well-nourished, no obvious distress SKIN: Focused skin assessment warm/dry. HEAD: Atraumatic. Normocephalic. EYES: Pupils equal and round. No scleral icterus. No injection or drainage. ENT: No nasal bleeding or discharge. Mucous membranes pink and moist. NECK: Trachea midline. No JVD. CARDIOVASCULAR: Regular rate and rhythm. No murmur appreciated. RESPIRATORY: No accessory muscle use. Clear to auscultation. Breath sounds equal bilaterally. GASTROINTESTINAL: Abdomen soft, non-tender, nondistended. Hepatic and splenic margins not palpable. MUSCULOSKELETAL: No obvious deformities. No clubbing. No cyanosis. No edema. NEUROLOGICAL: Awake and alert. No obvious cranial nerve deficits. Motor grossly within normal limits. Normal speech. PSYCHIATRIC: Hyperactive, elevated affect, depressed mood. Denies homicidal ideation but does endorse suicidal ideation, endorses a auditory hallucinations Data Data Last Documented VS Vital Signs Date Time Temp Pulse Resp B/P (MAP) Pulse Ox O2 Delivery O2 Flow Rate FiO2 10/01/17 18:59 98.2 87 16 181/74 (109) 100 Orders Orders Complete Blood Count With Diff (10/01/17 23:07) Comprehensive Metabolic Panel (10/01/17 23:07) Thyroid Stimulating Hormone (10/01/17 23:07) Psych Screen (10/01/17 23:07) Drug Screen, Random Urine (10/01/17 23:07) Alcohol (Ethanol) (10/01/17 23:07) Labs Laboratory Tests Test 10/01/17 23:15 10/02/17 00:40 White Blood Count 6.6 TH/MM3 Red Blood Count 4.58 MIL/MM3 Hemoglobin 13.7 GM/DL Hematocrit 40.4 % Mean Corpuscular Volume 88.1 FL Mean Corpuscular Hemoglobin 29.9 PG Mean Corpuscular Hemoglobin Concent 34.0 % Red Cell Distribution Width 12.8 % Platelet Count 214 TH/MM3 Mean Platelet Volume 7.7 FL Neutrophils (%) (Auto) 54.7 % Lymphocytes (%) (Auto) 36.4 % Monocytes (%) (Auto) 7.3 % Eosinophils (%) (Auto) 0.8 % Basophils (%) (Auto) 0.8 % Neutrophils # (Auto) 3.6 TH/MM3 Lymphocytes # (Auto) 2.4 TH/MM3 Monocytes # (Auto) 0.5 TH/MM3 Eosinophils # (Auto) 0.1 TH/MM3 Basophils # (Auto) 0.1 TH/MM3 CBC Comment DIFF FINAL Differential Comment Blood Urea Nitrogen 12 MG/DL Creatinine 0.76 MG/DL Random Glucose 94 MG/DL Total Protein 7.2 GM/DL Albumin 4.2 GM/DL Calcium Level 9.0 MG/DL Alkaline Phosphatase 50 U/L Aspartate Amino Transf (AST/SGOT) 43 U/L Alanine Aminotransferase (ALT/SGPT) 53 U/L Total Bilirubin 0.3 MG/DL Sodium Level 140 MEQ/L Potassium Level 3.7 MEQ/L Chloride Level 104 MEQ/L Carbon Dioxide Level 32.1 MEQ/L Anion Gap 4 MEQ/L Estimat Glomerular Filtration Rate 154 ML/MIN Thyroid Stimulating Hormone 3rd Gen 1.760 uIU/ML Ethyl Alcohol Level LESS THAN 3 MG/DL Urine Opiates Screen NEG Urine Barbiturates Screen NEG Urine Amphetamines Screen NEG Urine Benzodiazepines Screen NEG Urine Cocaine Screen NEG Urine Cannabinoids Screen NEG MDM Medical Decision Making Medical Screen Exam Complete: Yes Emergency Medical Condition: Yes Differential Diagnosis Schizophrenia, schizoaffective disorder, depression, Narrative Course Patient room to the emergency department, he would like to go to [facility] at his request. At this time is difficult for me to determine his motivations for being here, there could be secondary gains at play here however he certainly is somewhat odd in behavior and probably is schizophrenic. However Klein he does not meet Trejo act criteria as he wants to be seen voluntarily he is not greatly disabled. He will be taken to [facility] at his request, monitored overnight for psychiatric evaluation in the morning. He has no medical complaints to warrant further workup is medically cleared for psychiatric evaluation Diagnosis Primary Impression: Schizoaffective disorder, depressive type Condition: Stable Isaías Cm MD Oct 01, 2017 23:26
[2017-10-02 00:03] LABS: AUTOMATED NEUTROPHIL # 3.6 TH/MM3 (1.8-7.7); BASOPHIL # 0.1 TH/MM3 (0-0.2); BASOPHIL % 0.8 % (0.0-2.0); EOSINOPHIL # 0.1 TH/MM3 (0-0.4); EOSINOPHIL % 0.8 % (0.0-4.0); HEMATOCRIT 40.4 % (39.0-51.0); HEMOGLOBIN 13.7 GM/DL (13.0-17.0); LYMPH % 36.4 % (9.0-44.0); LYMPHOCYTE # 2.4 TH/MM3 (1.0-4.8); MEAN CELL VOLUME 88.1 FL (80.0-100.0); MEAN CORPUSCULAR HEMOGLOBIN 29.9 PG (27.0-34.0); MEAN PLATELET VOLUME 7.7 FL (7.0-11.0); MONO % 7.3 % (0.0-8.0); MONOCYTE # 0.5 TH/MM3 (0-0.9); NEUT % 54.7 % (16.0-70.0); PLATELET COUNT 214 TH/MM3 (150-450); RED BLOOD COUNT 4.58 MIL/MM3 (4.50-5.90); RED CELL DISTRIBUTION WIDTH 12.8 % (11.6-17.2); WHITE BLOOD COUNT 6.6 TH/MM3 (4.0-11.0)
[2017-10-02 00:11] LABS: ALBUMIN 4.2 GM/DL (3.4-5.0); ALT (GPT) 53 U/L (12-78); AST (GOT) 43 U/L (15-37); BICARBONATE 32.1 MEQ/L (21.0-32.0); BLOOD UREA NITROGEN 12 MG/DL (7-18); CHLORIDE 104 MEQ/L (98-107); CREATININE 0.76 MG/DL (0.60-1.30); GLOMERULAR FILTRATION RATE 154 ML/MIN (>89); GLUCOSE,RANDOM 94 MG/DL (74-106); SODIUM (NA) 140 MEQ/L (136-145)
[2017-10-02 00:20] LABS: ALKALINE PHOSPHATASE 50 U/L (45-117); TOTAL BILIRUBIN ADULT 0.3 MG/DL (0.2-1.0); TOTAL PROTEIN 7.2 GM/DL (6.4-8.2)
[2017-10-02 02:16] VITALS: BP 101/55; PULSE 74; RESP 17; O2SAT 96
[2017-10-02 06:34] VITALS: BP 126/74; PULSE 66; RESP 18; O2SAT 100
[2017-10-02 10:30] VITALS: BP 100/58; PULSE 99; RESP 20
--- NOTE | 2017-10-02 12:38 | PD ---
History of Present Illness Chief Complaint: Depression Time Seen by Provider: 12:30 Travel History International Travel<30 Days: No Contact w/Intl Traveler<30days: No Known affected area: No Legal Status Legal Status: Voluntary History of Present Illness: History of Present Illness HPI Patient is a 22-year-old male with history of obsessive-compulsive disorder who presents emergency department on a voluntary basis and states "I want to be Trejo acted". As per ED documentation which is reviewed and included in impart in this report" he states he was told to say this so that he would see a psychiatrist.".He was released from this institution yesterday from inpatient psychiatric [facility].. Patient will not discuss further with me the reasons for him being here but states he is feeling very jittery and the voices are getting out of control. EMR is reviewed. Patient was monitored here in J pod where extended period time and has presented no behavioral concerns and no suicidality. Case is discussed with Dr. Aston Gold who was the treating psychiatrist while the patient was on the inpatient unit. He states that he recommended that the patient stay longer because he has had so many frequent readmissions to the unit in the last several weeks and felt that the patient would benefit from further stabilization. Patient at that time did not meet criteria for involuntary admission. This morning the patient is seen. George MCKEON is present. The patient states that he came to the hospital because he was" feeling depressed and lonely". He also states that he needed to talk to a girl that he had met on Facebook. The patient does not present any psychosis, no dino, no hypomania. There is no suicidal or homicidal ideation, intent or plan. There is no significant objective symptom of depression that is observed or reported. The patient continues to state that he was lonely and wants to be in the hospital for that reason. He states that he has been taken his medication since his discharge. PFSH Past Medical History ADHD: Yes Arthritis: No Asthma: No Autoimmune Disease: Yes Anxiety: Yes Depression: No Heart Rhythm Problems: No Cancer: No Cardiovascular Problems: Yes (HTN) High Cholesterol: No Chemotherapy: No Chest Pain: No Congestive Heart Failure: No COPD: No Cerebrovascular Accident: No Diabetes: No Diminished Hearing: No Endocrine: No GERD: No Genitourinary: No Headaches: No Hiatal Hernia: No Heparin Induced Thrombocytopen: No Hypertension: No Immune Disorder: No Implanted Vascular Access Dvce: No Kidney Stones: No Musculoskeletal: No Neurologic: No Psychiatric: Yes (anxiety, OCD, ADHD) Reproductive: No Respiratory: No Immunizations Current: Yes Migraines: No Radiation Therapy: No Renal Failure: No Schizophrenia: Yes Seizures: No Sickle Cell Disease: No Sleep Apnea: No Thyroid Disease: No Ulcer: No Tetanus Vaccination: < 5 Years Influenza Vaccination: No Past Surgical History Surgical History: No Previous Surgery Abdominal Surgery: No AICD: No Arteriovenous Shunt: No Cardiac Surgery: No Ear Surgery: No Endocrine Surgery: No Eye Surgery: No Genitourinary Surgery: No Gynecologic Surgery: No Insulin Pump: No Joint Replacement: No Neurologic Surgery: No Oral Surgery: No Pacemaker: No Thoracic Surgery: No Other Surgery: No Psychiatric History Psychiatric History Hx Psychiatric Treatment: ADHD, OCD. Has had several admissions to our psychiatric inpatient unit with the last one being in September 26 2016. History of Inpatient Treatment: Yes Guns or firearms in home: No Social History Single male. Lives with his mother. Unemployed. Applying for Social Security disability benefits. Hx Alcohol Use: No Hx Tobacco Use: No Hx Substance Use: No Substance Use Type: Alcohol Hx of Substance Use Treatment: No Family Psychiatric History Negative Allergies-Medications (Allergen,Severity, Reaction): Coded Allergies: risperidone (Verified Allergy, Unknown, hallucination, 09/24/17) sertraline (Verified Allergy, Unknown, hiccups , 09/24/17) Reported Meds & Prescriptions Reported Meds & Active Scripts Active Olanzapine 10 Mg Tab 10 Mg PO HS 10 Days Escitalopram (Escitalopram Oxalate) 10 Mg Tab 30 Mg PO DAILY 15 Days Metoprolol Tartrate 25 Mg Tab 25 Mg PO DAILY 15 Days Review of Systems Psychiatric: DENIES: Anxiety, Confusion, Mood changes, Depression, Hallucinations, Agitation, Suicidal Ideation, Homicidal Ideation, Delusions Except as stated in HPI: all other systems reviewed are Neg Mental Status Examination Appearance: Appropriate Consciousness: Alert Orientation: x4 Motor Activity: Normal gait Speech: Unremarkable Language: Adequate Fund of Knowledge: Adequate Attention and Concentration: Adequate Memory: Unremarkable Mood: Appropriate Affect: Appropriate Thought Process & Associations: Intact, Logical, Goal directed Thought Content: Appropriate Hallucination Type: None Delusion Type: None Suicidal Ideation: No Suicidal Plan: No Suicidal Intention: No Homicidal Ideation: No Homicidal Plan: No Homicidal Intention: No Insight: Poor Judgment: Impulsive MDM Medical Decision Making Medical Record Reviewed: Yes Assessment/Plan 22-year-old single male with history of obsessive-compulsive disorder who presents to the emergency department on a voluntary basis requesting admission to inpatient psychiatric unit. The patient was discharged from inpatient unit within the last 24 hours. He initially reported to ED provider that he was hearing voices. He was monitored in J pod for extended period of time and presented no behavioral concerns and did not appear to be internally stimulated. He tells me this morning that he came back to the hospital because he was feeling depressed and lonely. He also states that he wanted to be discharged because he wanted to talk to a girl that he met on Facebook. At this time the patient does not meet criteria for inpatient psychiatric unit. Psychoeducation is provided. Patient is encouraged to continue outpatient psychiatric treatment. He is also encouraged to participate in support groups available in the community. No changes made to patient's current psychiatric medication. Patient is psychiatrically clear for discharge from the ED. Orders Orders Complete Blood Count With Diff (10/01/17 23:07) Comprehensive Metabolic Panel (10/01/17 23:07) Thyroid Stimulating Hormone (10/01/17 23:07) Psych Screen (10/01/17 23:07) Drug Screen, Random Urine (10/01/17 23:07) Alcohol (Ethanol) (10/01/17 23:07) Diet Regular Basic (10/02/17 Breakfast) Diet Regular Basic (10/02/17 Lunch) Results Vital Signs Date Time Temp Pulse Resp B/P (MAP) Pulse Ox O2 Delivery O2 Flow Rate FiO2 10/02/17 10:30 99 20 100/58 (72) Room Air 10/02/17 06:34 66 18 126/74 (91) 100 Room Air 10/02/17 02:16 74 17 101/55 (70) 96 Room Air 10/01/17 18:59 98.2 87 16 181/74 (109) 100 Laboratory Tests Test 10/01/17 23:15 10/02/17 00:40 White Blood Count 6.6 Red Blood Count 4.58 Hemoglobin 13.7 Hematocrit 40.4 Mean Corpuscular Volume 88.1 Mean Corpuscular Hemoglobin 29.9 Mean Corpuscular Hemoglobin Concent 34.0 Red Cell Distribution Width 12.8 Platelet Count 214 Mean Platelet Volume 7.7 Neutrophils (%) (Auto) 54.7 Lymphocytes (%) (Auto) 36.4 Monocytes (%) (Auto) 7.3 Eosinophils (%) (Auto) 0.8 Basophils (%) (Auto) 0.8 Neutrophils # (Auto) 3.6 Lymphocytes # (Auto) 2.4 Monocytes # (Auto) 0.5 Eosinophils # (Auto) 0.1 Basophils # (Auto) 0.1 CBC Comment DIFF FINAL Differential Comment Blood Urea Nitrogen 12 Creatinine 0.76 Random Glucose 94 Total Protein 7.2 Albumin 4.2 Calcium Level 9.0 Alkaline Phosphatase 50 Aspartate Amino Transf (AST/SGOT) 43 Alanine Aminotransferase (ALT/SGPT) 53 Total Bilirubin 0.3 Sodium Level 140 Potassium Level 3.7 Chloride Level 104 Carbon Dioxide Level 32.1 Anion Gap 4 Estimat Glomerular Filtration Rate 154 Thyroid Stimulating Hormone 3rd Gen 1.760 Ethyl Alcohol Level LESS THAN 3 Urine Opiates Screen NEG Urine Barbiturates Screen NEG Urine Amphetamines Screen NEG Urine Benzodiazepines Screen NEG Urine Cocaine Screen NEG Urine Cannabinoids Screen NEG Diagnosis Primary Impression: Obsessive-compulsive disorder with absent insight or delusional beliefs Psychiatrically Cleared: Yes Med/ Other Pt Specific Info: No Change to Meds Disposition: 01 DISCHARGE HOME Condition: Stable Laureen Richard Oct 02, 2017 12:38
== END 2017-10-02 13:17 | disposition home or self-care (01) ==
LOC: NEPJ 18:57
DX: F25.1 Schizoaffective disorder, depressive type (principal); F42.9 Obsessive-compulsive disorder, unspecified; R44.0 Auditory hallucinations; I10 Essential (primary) hypertension; F90.9 Attention-deficit hyperactivity disorder, unspecified type; F41.8 Other specified anxiety disorders
CPT/HCPCS: 80053; 80307; 84443; 85025; 99283

== ENCOUNTER 2018-02-02 19:36 | Inpatient (IN) | payer MEDICAID ==
[~2018-02-02] VITALS: Ht 177.8 cm; Wt 76.8 kg
[2018-02-02 21:03] VITALS: BP 117/57; PULSE 66; RESP 18; TEMP 98.9
--- NOTE | 2018-02-02 21:12 | PD ---
HPI Chief Complaint: Suicide Ideation/Attempt Time Seen by Provider: 20:55 Travel History International Travel<30 days: No Contact w/Intl Traveler<30days: No Traveled to known affect area: No History of Present Illness HPI This is a 22-year-old male who appears to have been admitted in the past for OCD and schizophrenia. He presents voluntarily requesting psychiatric evaluation. Symptom onset 2 weeks ago. He reports that he has been having suicidal thoughts and depression and been thinking bad thoughts. He reports that symptoms started after watching a movie in which the devil was featured heavily. Symptoms are moderate, aggravated by watching a movie with no relieving factors. Specifically he has been having thoughts of shooting himself in the head. He does not have any access to firearms. Reports that he has been compliant with Zyprexa but did not take today. He has not been compliant with his Lexapro prescription. He denies any drug or alcohol use, auditory or visual hallucinations, homicidal ideation. He has no medical complaints at this time. PFSH Past Medical History ADHD: Yes Arthritis: No Asthma: No Autoimmune Disease: Yes Anxiety: Yes Depression: No Heart Rhythm Problems: No Cancer: No Cardiovascular Problems: Yes (HTN) High Cholesterol: No Chemotherapy: No Chest Pain: No Congestive Heart Failure: No COPD: No Cerebrovascular Accident: No Diabetes: No Diminished Hearing: No Endocrine: No GERD: No Genitourinary: No Headaches: No Hiatal Hernia: No Heparin Induced Thrombocytopen: No Hypertension: No Immune Disorder: No Implanted Vascular Access Dvce: No Kidney Stones: No Musculoskeletal: No Neurologic: No Psychiatric: Yes (anxiety, OCD, ADHD) Reproductive: No Respiratory: No Immunizations Current: Yes Migraines: No Radiation Therapy: No Renal Failure: No Schizophrenia: Yes Seizures: No Sickle Cell Disease: No Sleep Apnea: No Thyroid Disease: No Ulcer: No Influenza Vaccination: No Past Surgical History Surgical History: No Previous Surgery Abdominal Surgery: No AICD: No Arteriovenous Shunt: No Cardiac Surgery: No Ear Surgery: No Endocrine Surgery: No Eye Surgery: No Genitourinary Surgery: No Gynecologic Surgery: No Insulin Pump: No Joint Replacement: No Neurologic Surgery: No Oral Surgery: No Pacemaker: No Thoracic Surgery: No Other Surgery: No Social History Alcohol Use: No Tobacco Use: No Substance Use: No Allergies-Medications (Allergen,Severity, Reaction): Coded Allergies: risperidone (Verified Allergy, Unknown, hallucination, 09/24/17) sertraline (Verified Allergy, Unknown, hiccups , 09/24/17) Reported Meds & Prescriptions Reported Meds & Active Scripts Active Olanzapine 10 Mg Tab 10 Mg PO HS 10 Days Metoprolol Tartrate 25 Mg Tab 25 Mg PO DAILY 15 Days Review of Systems Except as stated in HPI: all other systems reviewed are Neg Physical Exam Narrative GENERAL: Well-developed well-nourished male in no acute distress SKIN: Warm and dry. HEAD: Atraumatic. Normocephalic. EYES: Pupils equal and round. No scleral icterus. No injection or drainage. ENT: No nasal bleeding or discharge. Mucous membranes pink and moist. NECK: Trachea midline. No JVD. CARDIOVASCULAR: Regular rate and rhythm. No murmur appreciated. RESPIRATORY: No accessory muscle use. Clear to auscultation. Breath sounds equal bilaterally. GASTROINTESTINAL: Abdomen soft, non-tender, nondistended. Hepatic and splenic margins not palpable. MUSCULOSKELETAL: No obvious deformities. No clubbing. No cyanosis. No edema. NEUROLOGICAL: Awake and alert. No obvious cranial nerve deficits. Motor grossly within normal limits. Normal speech. PSYCHIATRIC: Appropriate mood and affect; insight and judgment normal. Data Data Last Documented VS Vital Signs Date Time Temp Pulse Resp B/P (MAP) Pulse Ox O2 Delivery O2 Flow Rate FiO2 02/02/18 21:06 100 Room Air 02/02/18 21:06 75 02/02/18 21:03 98.9 18 117/57 (77) Orders Orders Olanzapine Inj (Zyprexa Inj) (02/02/18 21:15) Complete Blood Count With Diff (02/02/18 21:08) Comprehensive Metabolic Panel (02/02/18 21:08) Thyroid Stimulating Hormone (02/02/18 21:08) Psych Screen (02/02/18 21:08) Drug Screen, Random Urine (02/02/18 21:08) Alcohol (Ethanol) (02/02/18 21:08) Labs Laboratory Tests Test 02/02/18 21:10 White Blood Count 6.8 TH/MM3 Red Blood Count 4.78 MIL/MM3 Hemoglobin 14.4 GM/DL Hematocrit 41.8 % Mean Corpuscular Volume 87.4 FL Mean Corpuscular Hemoglobin 30.0 PG Mean Corpuscular Hemoglobin Concent 34.3 % Red Cell Distribution Width 12.4 % Platelet Count 229 TH/MM3 Mean Platelet Volume 7.4 FL Neutrophils (%) (Auto) 64.5 % Lymphocytes (%) (Auto) 28.1 % Monocytes (%) (Auto) 6.4 % Eosinophils (%) (Auto) 0.3 % Basophils (%) (Auto) 0.7 % Neutrophils # (Auto) 4.4 TH/MM3 Lymphocytes # (Auto) 1.9 TH/MM3 Monocytes # (Auto) 0.4 TH/MM3 Eosinophils # (Auto) 0.0 TH/MM3 Basophils # (Auto) 0.0 TH/MM3 CBC Comment DIFF FINAL Differential Comment Blood Urea Nitrogen 13 MG/DL Creatinine 0.99 MG/DL Random Glucose 93 MG/DL Total Protein 7.7 GM/DL Albumin 4.4 GM/DL Calcium Level 9.3 MG/DL Alkaline Phosphatase 56 U/L Aspartate Amino Transf (AST/SGOT) 14 U/L Alanine Aminotransferase (ALT/SGPT) 19 U/L Total Bilirubin 0.8 MG/DL Sodium Level 139 MEQ/L Potassium Level 3.9 MEQ/L Chloride Level 103 MEQ/L Carbon Dioxide Level 28.5 MEQ/L Anion Gap 8 MEQ/L Estimat Glomerular Filtration Rate 114 ML/MIN Thyroid Stimulating Hormone 3rd Gen 0.808 uIU/ML Ethyl Alcohol Level LESS THAN 3 MG/DL MDM Medical Decision Making Medical Screen Exam Complete: Yes Emergency Medical Condition: Yes Medical Record Reviewed: Yes Differential Diagnosis Adjustment reaction, schizophrenia, schizoaffective disorder, acute psychosis, substance-induced mood disorder, major depressive disorder, depressive disorder not otherwise specified Narrative Course 22-year-old male presents voluntarily requesting psychiatric evaluation. Mental health screening discussed with the patient. Psychiatric screen ordered. Medically cleared. Diagnosis Primary Impression: Medical clearance for psychiatric admission Elie Ghosh Feb 02, 2018 21:12
[2018-02-02] MEDS ORDERED: OLANZapine IM 10 MG VIAL IM ONE (21:15)
[2018-02-02 21:28] LABS: AUTOMATED NEUTROPHIL # 4.4 TH/MM3 (1.8-7.7); BASOPHIL % 0.7 % (0.0-2.0); EOSINOPHIL % 0.3 % (0.0-4.0); HEMATOCRIT 41.8 % (39.0-51.0); HEMOGLOBIN 14.4 GM/DL (13.0-17.0); LYMPH % 28.1 % (9.0-44.0); LYMPHOCYTE # 1.9 TH/MM3 (1.0-4.8); MEAN CELL VOLUME 87.4 FL (80.0-100.0); MEAN CORPUSCULAR HGB CONC 34.3 % (32.0-36.0); MEAN PLATELET VOLUME 7.4 FL (7.0-11.0); MONO % 6.4 % (0.0-8.0); MONOCYTE # 0.4 TH/MM3 (0-0.9); NEUT % 64.5 % (16.0-70.0); PLATELET COUNT 229 TH/MM3 (150-450); RED BLOOD COUNT 4.78 MIL/MM3 (4.50-5.90); RED CELL DISTRIBUTION WIDTH 12.4 % (11.6-17.2); WHITE BLOOD COUNT 6.8 TH/MM3 (4.0-11.0)
[2018-02-02 21:50] LABS: ALBUMIN 4.4 GM/DL (3.4-5.0); AST (GOT) 14 U/L (15-37); BICARBONATE 28.5 MEQ/L (21.0-32.0); BLOOD UREA NITROGEN 13 MG/DL (7-18); CALCIUM 9.3 MG/DL (8.5-10.1); CHLORIDE 103 MEQ/L (98-107); CREATININE 0.99 MG/DL (0.60-1.30); GLOMERULAR FILTRATION RATE 114 ML/MIN (>89); GLUCOSE,RANDOM 93 MG/DL (74-106); SODIUM (NA) 139 MEQ/L (136-145)
[2018-02-02 21:51] LABS: ALT (GPT) 19 U/L (12-78)
[2018-02-02 22:01] LABS: ALKALINE PHOSPHATASE 56 U/L (45-117); TOTAL BILIRUBIN ADULT 0.8 MG/DL (0.2-1.0); TOTAL PROTEIN 7.7 GM/DL (6.4-8.2)
[2018-02-03 06:19] VITALS: BP 116/65; PULSE 76; RESP 18; O2SAT 99
--- NOTE | 2018-02-03 13:41 | PD ---
History of Present Illness Chief Complaint: Suicide Ideation/Attempt Time Seen by Provider: 12:00 Travel History International Travel<30 Days: No Contact w/Intl Traveler<30days: No Known affected area: No Legal Status Legal Status: Voluntary History of Present Illness: History of Present Illness HPI This is a 22-year-old male with history of schizoaffective disorder, anxiety and OCD, intermittent medication compliance, presents voluntarily requesting psychiatric evaluation.Reports that for the past few weeks, worse in the past 4 days, after he watched a movie, [employer]. He has had persistent and intrusive thoughts about the devil as well as feeling suicidal. He states " I can't stand these thoughts and they make me cry. I can't get them out of my head". His mother called the hospital ED and reported that the patient had made statements about " blowing his brains out". When the patient was confronted with this he admits to having thoughts of going out and getting a gun and " blowing my brains out". Although he does not have a gun he states that he could acquire one. The patient has not been taking his medications consistently and most recently has stopped the Lexapro. Reports sleeping well, good appetite. PFSH Past Medical History ADHD: Yes Arthritis: No Asthma: No Autoimmune Disease: Yes Anxiety: Yes Depression: No Heart Rhythm Problems: No Cancer: No Cardiovascular Problems: Yes (HTN) High Cholesterol: No Chemotherapy: No Chest Pain: No Congestive Heart Failure: No COPD: No Cerebrovascular Accident: No Diabetes: No Diminished Hearing: No Endocrine: No GERD: No Genitourinary: No Headaches: No Hiatal Hernia: No Heparin Induced Thrombocytopen: No Hypertension: No Immune Disorder: No Implanted Vascular Access Dvce: No Kidney Stones: No Musculoskeletal: No Neurologic: No Psychiatric: Yes (anxiety, OCD, ADHD) Reproductive: No Respiratory: No Immunizations Current: Yes Migraines: No Radiation Therapy: No Renal Failure: No Schizophrenia: Yes Seizures: No Sickle Cell Disease: No Sleep Apnea: No Thyroid Disease: No Ulcer: No Influenza Vaccination: No Past Surgical History Surgical History: No Previous Surgery Abdominal Surgery: No AICD: No Arteriovenous Shunt: No Cardiac Surgery: No Ear Surgery: No Endocrine Surgery: No Eye Surgery: No Genitourinary Surgery: No Gynecologic Surgery: No Insulin Pump: No Joint Replacement: No Neurologic Surgery: No Oral Surgery: No Pacemaker: No Thoracic Surgery: No Other Surgery: No Psychiatric History Psychiatric History Hx Psychiatric Treatment: HX OF OCD. HAS BEEN NONCOMPLIANT WITH LEXAPRO. SAYS IT DID NOT WORK. HAS BEEN ADMITTED TO [facility] AND [place] [facility] IN SEP 2017. HAS BEEN REC'ING PSYCHIATRIC SERVICES SINCE HE WAS 6 YRS OLd. Outpatietn care thru [facility] History of Inpatient Treatment: Yes Guns or firearms in home: No Social History Single, never . Lives with his mother. ON SSI. Hx Alcohol Use: No Hx Tobacco Use: No Hx Substance Use: No Substance Use Type: Alcohol Hx of Substance Use Treatment: No Family Psychiatric History negative Allergies-Medications (Allergen,Severity, Reaction): Coded Allergies: risperidone (Verified Allergy, Unknown, hallucination, 09/24/17) sertraline (Verified Allergy, Unknown, hiccups , 09/24/17) Reported Meds & Prescriptions Reported Meds & Active Scripts Active Olanzapine 10 Mg Tab 10 Mg PO HS 10 Days Metoprolol Tartrate 25 Mg Tab 25 Mg PO DAILY 15 Days Review of Systems Psychiatric: COMPLAINS OF: Anxiety, Depression, Suicidal Ideation Mental Status Examination Appearance: Appropriate Consciousness: Alert Orientation: x4 Motor Activity: Normal gait Speech: Unremarkable Language: Adequate Fund of Knowledge: Adequate Attention and Concentration: Adequate Memory: Unremarkable Mood: Sad, Anxious Affect: Appropriate Thought Process & Associations: Intact, Logical, Goal directed Thought Content: Appropriate Hallucination Type: None Delusion Type: None Suicidal Ideation: Yes Suicidal Plan: Yes Suicidal Intention: No Homicidal Ideation: No Homicidal Plan: No Homicidal Intention: No Insight: Poor Judgment: Poor MDM Medical Decision Making Medical Record Reviewed: Yes Assessment/Plan This is a 22-year-old male with history of schizoaffective disorder, anxiety and OCD, intermittent medication compliance, presents voluntarily requesting psychiatric evaluation.Reports that for the past few weeks, worse in the past 4 days, after he watched a movie, [employer]. He has had persistent and intrusive thoughts about the devil as well as feeling suicidal. He states " I can't stand these thoughts and they make me cry. I can't get them out of my head". His mother called the hospital ED and reported that the patient had made statements about " blowing his brains out. Patient meets criteria for increased level of care such as on an inpatient unit for safety, stabilization and medication adjustment. Orders Orders Olanzapine Inj (Zyprexa Inj) (02/02/18 21:15) Complete Blood Count With Diff (02/02/18 21:08) Comprehensive Metabolic Panel (02/02/18 21:08) Thyroid Stimulating Hormone (02/02/18 21:08) Psych Screen (02/02/18 21:08) Drug Screen, Random Urine (02/02/18 21:08) Alcohol (Ethanol) (02/02/18 21:08) Diet Regular Basic (02/03/18 Breakfast) Diet Regular Basic (02/03/18 Lunch) Results Vital Signs Date Time Temp Pulse Resp B/P (MAP) Pulse Ox O2 Delivery O2 Flow Rate FiO2 02/03/18 06:19 76 18 116/65 (82) 99 Room Air 02/02/18 21:06 100 Room Air 02/02/18 21:06 75 02/02/18 21:03 98.9 66 18 117/57 (77) Laboratory Tests Test 02/02/18 21:10 02/03/18 06:00 White Blood Count 6.8 Red Blood Count 4.78 Hemoglobin 14.4 Hematocrit 41.8 Mean Corpuscular Volume 87.4 Mean Corpuscular Hemoglobin 30.0 Mean Corpuscular Hemoglobin Concent 34.3 Red Cell Distribution Width 12.4 Platelet Count 229 Mean Platelet Volume 7.4 Neutrophils (%) (Auto) 64.5 Lymphocytes (%) (Auto) 28.1 Monocytes (%) (Auto) 6.4 Eosinophils (%) (Auto) 0.3 Basophils (%) (Auto) 0.7 Neutrophils # (Auto) 4.4 Lymphocytes # (Auto) 1.9 Monocytes # (Auto) 0.4 Eosinophils # (Auto) 0.0 Basophils # (Auto) 0.0 CBC Comment DIFF FINAL Differential Comment Blood Urea Nitrogen 13 Creatinine 0.99 Random Glucose 93 Total Protein 7.7 Albumin 4.4 Calcium Level 9.3 Alkaline Phosphatase 56 Aspartate Amino Transf (AST/SGOT) 14 Alanine Aminotransferase (ALT/SGPT) 19 Total Bilirubin 0.8 Sodium Level 139 Potassium Level 3.9 Chloride Level 103 Carbon Dioxide Level 28.5 Anion Gap 8 Estimat Glomerular Filtration Rate 114 Thyroid Stimulating Hormone 3rd Gen 0.808 Ethyl Alcohol Level LESS THAN 3 Urine Opiates Screen NEG Urine Barbiturates Screen NEG Urine Amphetamines Screen NEG Urine Benzodiazepines Screen NEG Urine Cocaine Screen NEG Urine Cannabinoids Screen NEG Diagnosis Primary Impression: Medical clearance for psychiatric admission Additional Impression: Obsessive-compulsive disorder with absent insight or delusional beliefs Admitting Information Admitting Physician Requests: Admit Problem Qualifiers Laureen Richard [facility] Feb 03, 2018 13:41
[2018-02-03] MEDS ORDERED: MAGNESIUM HYDROXIDE SUSP 30 ML CUP PO PRN (13:45)
[2018-02-03] MEDS ORDERED: ACETAMINOPHEN 325 MG TAB PO PRN (13:45)
[2018-02-03] MEDS ORDERED: ALUMINUM/MAGNESIUM/SIMETH 30 ML CUP PO PRN (13:45)
[2018-02-03 14:00] VITALS: BP 134/63; PULSE 79; RESP 18; TEMP 97.6; O2SAT 99
[2018-02-03] MEDS ORDERED: DIAZ5TAB PO (14:27)
[2018-02-04 05:55] VITALS: BP 124/58; PULSE 70; RESP 19; TEMP 97.7; O2SAT 100
[2018-02-04 08:03] LABS: BICARBONATE 28.3 MEQ/L (21.0-32.0); BLOOD UREA NITROGEN 13 MG/DL (7-18); CALCIUM 9.2 MG/DL (8.5-10.1); CHLORIDE 105 MEQ/L (98-107); CREATININE 0.94 MG/DL (0.60-1.30); GLOMERULAR FILTRATION RATE 121 ML/MIN (>89); GLUCOSE,RANDOM 87 MG/DL (74-106); SODIUM (NA) 142 MEQ/L (136-145)
[2018-02-04 08:04] LABS: CHOLESTEROL 91 MG/DL (120-200)
[2018-02-04 08:07] LABS: CHOLESTEROL/ HDL RATIO 2.09 RATIO; HDL CHOLESTEROL 43.4 MG/DL (40.0-60.0); LDL CHOLESTEROL 35 MG/DL (0-99); TRIGLYCERIDES 65 MG/DL (42-150)
[2018-02-04] MEDS: NICOTINE 21 MG/24 HR PATCH T-DERMAL SCH (09:00)
[2018-02-04] MEDS: METOPROLOL TARTRATE 25 MG TAB PO SCH (09:34)
[2018-02-04] MEDS: OLANZapine 5 MG TAB PO SCH (12:45)
[2018-02-04] MEDS ORDERED: FLUoxetine HCL 10 MG CAP PO ONE (15:00)
[2018-02-04 16:43] LABS: HEMOGLOBIN A1C 5.1 % (4.3-6.0)
--- NOTE | 2018-02-04 17:23 | HHI.HP ---
Provisional Diagnosis Admission Date Feb 03, 2018 at 13:44 [place] I. Schizophrenia Certification of Person's Competence To Provide Express and Informed Consent I have personally examined Adalid Villa , a person being served at [facility] on, Feb 04, 2018 17:13. Express and informed consent means consent voluntarily given in writing, by a competent person, after sufficient explanation and disclosure of the subject matter involved to enable the person to make a knowing and willful decision without any element of force, fraud, deceit, duress, or other form of constraint or coercion. This person is 18 years of age or older, is not now known to be incompetent to consent to treatment with a guardian advocate, and does not have a health care surrogate or proxy currently making medical treatment decisions. I have found this person to be one of the following: [xxx] Competent to provide express and informed consent, as defined above, for voluntary admission to this facility and is competent to provide express and informed consent for treatment. He/she has the consistent capacity to make well reasoned, willful, and knowing decisions concerning his or her medical or mental health treatment. The person fully and consistently understands the purpose of the admission for examination/placement and is fully capable of personally exercising all rights [place] Incompetent to provide express and informed consent to voluntary admission, and this is incompetent to provide express and informed consent to treatment. The person must be transferred to involuntary status and a petition for a guardian advocate filed with the Circuit Court. [] Refusing to provide express and informed consent to voluntary admission but is competent to provide express and informed consent for treatment. The person must be discharged or transferred to involuntary status. Form shall be completed within 24 hours of a person's arrival at the receiving facility and filed in the clinical record of each person: 1. Admitted on a voluntary basis 2. Permitted to provide express and informed consent to his/her own treatment 3. Allowed to transfer from involuntary to voluntary status 4. Prior to permitting a person to consent to his or her own treatment after having been previously found incompetent to consent to treatment. History of Present Illness Capacity: Has Capacity HPI Patient is a 32-year-old -[place] man, single, no children, domiciled with mother, unemployed, on SSI, with a past psychiatric history of schizophrenia, OCD as per patient, 5 previous psychiatric admissions last time being in September of this year, no previous suicide attempt or self-injurious behavior, followed up at [facility], previous history of marijuana use currently in remission, with a past medical history significant for hypertension , who presented to the ED reporting feeling depressed along with suicide ideation and having persistent intrusive thoughts of the devil which patient was admitted for further psychiatric stabilization. Patient was found ambulating on unit noted B, cooperative. Patient reports feeling stressed recently along with feeling depressed and currently thinking "bad thoughts, as it interferes with my life". Patient states that he is always having negative thoughts, providing example of phone giving radiations to his heart as well as thoughts of the devil going to get him. Patient states that he felt like blowing his brains out because of the thoughts. He also mentions having had watched a [employer] video pertaining to the devil and illuminati. Patient also mentions hemifield persecuted by the devil and feeling guilty of masturbating as he states it is a sin. Patient denies any changes sleep, appetite or energy but reports decreased concentration due to the intrusive thoughts but denies these thoughts of being auditory hallucinations. He also reports having suicide ideations for the past 2 days along with feeling helpless and hopeless. Patient this time denies any suicide ideation reports his mood being "alright " but continues report having these negative thoughts. Patient denies any perceptual disturbances but remains with paranoid ideations due to the same. Family psychiatric history: Denies Past psychiatric history: Previous psychiatric diagnoses schizophrenia, OCD as per patient, 5 previous psychiatric admissions last time being in September, no previous suicide attempt or self-injurious behavior. Patient denies any history of abuse. Patient reports outpatient mental provider at [facility] last seen 2 weeks ago and recent medication regimen included Zyprexa 10 mg p.o. at bedtime as well as Lexapro 20 mg p.o. daily which she has stopped. Substance use history: Alcohol use "sometimes" last time being 6 months ago, patient reports remote history of marijuana use last time being 2 years ago. Patient denies use of any other drugs. Past medical history: Hypertension, currently on metoprolol 20 mg p.o. daily for the same Allergies: Risperidone, Zoloft Social history: Single, no children, domiciled with mother, unemployed on SSI, no background, no asked to firearms, no legal history. Highest education is ninth grade. Collateral contact: Shantal Morales (mother) . Review of Systems Except as stated in HPI: all other systems reviewed are Neg Past Psych History Psychological trauma history Denies Violence risk - others (6 mos) Low Violence risk - self (6 mos) Elevated due to recent suicide ideation. Substance Abuse History Drugs/Alcohol past 12 months Alcohol use "sometimes" last time being 6 months ago, patient reports remote history of marijuana use last time being 2 years ago. Patient denies use of any other drugs. Past Family Social History Coded Allergies: risperidone (Verified Allergy, Unknown, hallucination, 09/24/17) sertraline (Verified Allergy, Unknown, hiccups , 09/24/17) Active Scripts Olanzapine (Olanzapine) 10 Mg Tab, 10 MG PO HS for MENTAL HEALTH for 10 Days, TAB 2 Refills Prov:Aston Gold MD 09/30/17 Metoprolol Tartrate (Metoprolol Tartrate) 25 Mg Tab, 25 MG PO DAILY for Health for 15 Days, #15 TAB 1 Refill Prov:Aston Gold MD 09/21/17 Reported Medications Diazepam (Diazepam) 5 Mg Tab, 5 MG PO TID Y for ANXIETY, TAB 0 Refills 02/03/18 Discontinued Scripts Escitalopram (Escitalopram) 10 Mg Tab, 30 MG PO DAILY for Mental Health for 15 Days, #45 TAB 1 Refill Prov:Aston Gold MD 09/21/17 Current Medications Medications (Trade) Dose Ordered Sig/Keith Route Start Time Stop Time Status Last Admin (Tylenol) 650 mg Q4H PRN PO 02/03/18 13:45 (Milk Of Magnesia Liq) 30 ml DAILY PRN PO 02/03/18 13:45 (Mag-Al Plus Susp Liq) 30 ml Q6H PRN PO 02/03/18 13:45 (Habitrol 21 Mg Patch.24 Hr) 1 patch DAILY T-DERMAL 02/04/18 09:00 (Lopressor) 25 mg DAILY PO 02/04/18 09:00 02/04/18 09:34 Miscellaneous Information 1 HS T-DERMAL 02/04/18 21:00 (ZyPREXA) 10 mg HS PO 02/04/18 21:00 (ZyPREXA) 5 mg DAILY PO 02/04/18 12:45 02/04/18 12:45 (PROzac) 20 mg DAILY PO 02/05/18 09:00 Family Psych History Denies Social History Single, no children, domiciled with mother, unemployed on SSI, no background, no asked to firearms, no legal history. Highest education is ninth grade. Collateral contact: Shantal Morales (mother) [phone]. Patient's Strengths (min. 2) Verbal and communicative Physical Exam Patient not noted to be in acute distress, no gross motor abnormalities, no tremors or EPS, no noted psychomotor retardation or agitation. Vital Signs Vital Signs Date Time Temp Pulse Resp B/P (MAP) Pulse Ox O2 Delivery O2 Flow Rate FiO2 02/04/18 05:55 97.7 70 19 124/58 (80) 100 02/03/18 06:19 Room Air Lab Results Labs reviewed Test 02/04/18 06:47 Blood Urea Nitrogen 13 MG/DL Creatinine 0.94 MG/DL Random Glucose 87 MG/DL Calcium Level 9.2 MG/DL Sodium Level 142 MEQ/L Potassium Level 3.7 MEQ/L Chloride Level 105 MEQ/L Carbon Dioxide Level 28.3 MEQ/L Anion Gap 9 MEQ/L Estimat Glomerular Filtration Rate 121 ML/MIN Hemoglobin A1c 5.1 % Triglycerides Level 65 MG/DL Cholesterol Level 91 MG/DL LDL Cholesterol 35 MG/DL HDL Cholesterol 43.4 MG/DL Cholesterol/HDL Ratio 2.09 RATIO Mental Status Examination Appearance: Appropriate Consciousness: Alert Orientation: x4 Motor Activity: Normal gait Speech: Unremarkable Language: Adequate Fund of Knowledge: Adequate Attention and Concentration: Adequate Memory: Unremarkable Mood: Sad, Anxious Affect: Sad Thought Process & Associations: Intact, Logical, Goal directed Thought Content: Delusional Hallucination Type: None Delusion Type: Paranoid Suicidal Ideation: Yes Suicidal Plan: Yes Suicidal Intention: No Homicidal Ideation: No Homicidal Plan: No Homicidal Intention: No Insight: Poor Judgment: Poor Assessment & Plan Problem List: (1) Schizophrenia ICD Codes: F20.9 - Schizophrenia, unspecified Status: Acute Assessment & Plan Estimated LOS: 5-7 days. Patient is a 22-year-old -[place] man who carries a diagnosis schizophrenia, OCD, previous psychiatric admissions, admitted due to ongoing depressed mood with suicide ideations with past 2 days in relation to constant intrusive thoughts of the devil and luminary coming after him with paranoid ideation. We will increase olanzapine to 5 mg p.o. a.m. /10 mg at bedtime, start fluoxetine 10 mg p.o. 1, 20 mg p.o. daily thereafter for depression. We will continue to monitor mood and behavior. Social work intervention for psychosocial assessment. Patient currently under voluntary admission. Collateral formation pending. Discharge planning in progress. Discharge Planning Patient return back to his residence was psychiatrically stable. Problem Qualifiers (1) Schizophrenia: Qualified Codes: F20.0 - Paranoid schizophrenia Claudio Alva MD Feb 04, 2018 17:23
[2018-02-04 17:56] VITALS: BP 134/66; PULSE 99; RESP 20; TEMP 98; O2SAT 99
[2018-02-04] MEDS: REMOVE OLD NICODERM (NICOTINE) PATCH T-DERMAL SCH (21:00)
[2018-02-04] MEDS ORDERED: OLANZapine 10 MG TAB PO SCH (21:00)
[2018-02-05 06:08] VITALS: BP 135/61; PULSE 74; RESP 16; TEMP 98.2; O2SAT 96
[2018-02-05] MEDS: FLUoxetine HCL 20 MG CAP PO SCH (08:31)
[2018-02-05] MEDS: OLANZapine 5 MG TAB PO SCH (08:32)
[2018-02-05] MEDS: METOPROLOL TARTRATE 25 MG TAB PO SCH (08:32)
[2018-02-05] MEDS: NICOTINE 21 MG/24 HR PATCH T-DERMAL SCH (09:00)
[2018-02-05 18:22] VITALS: BP 116/57; PULSE 93; RESP 16; TEMP 98.1; O2SAT 98
--- NOTE | 2018-02-05 18:56 | HHI.PYPN ---
Subjective Remarks Patient seen for follow, chart reviewed. Discussion nursing staff reported the patient has required, seclusive, continues to have racing thoughts and auditory hallucinations. Patient was found lying hospital bed noted, cooperative. Patient reports having slept better last evening, mood being "good", reporting no difficulty eating or drinking or bowel movement. Patient continued to endorse auditory hallucinations but states they are less intense now and continues to have intrusive thoughts which have been less intense as well. Patient reports having attended a group, denying any suicidal homicidal ideations. Patient reports having spoken with his brother yesterday but did not elaborate. Review of Systems Except as stated in HPI: all other systems reviewed are Neg Mental Status Examination Appearance: Appropriate Consciousness: Alert Orientation: x4 Motor Activity: Normal gait Speech: Unremarkable Language: Adequate Fund of Knowledge: Adequate Attention and Concentration: Adequate Memory: Unremarkable Mood: Good Affect: Other (Restricted) Thought Process & Associations: Intact, Logical, Goal directed Thought Content: Hallucinations, Delusional Hallucination Type: Auditory Delusion Type: Paranoid Suicidal Ideation: Yes Suicidal Plan: Yes Suicidal Intention: No Homicidal Ideation: No Homicidal Plan: No Homicidal Intention: No Insight: Poor Judgment: Poor Results Vitals/IOs Vital Signs Date Time Temp Pulse Resp B/P (MAP) Pulse Ox O2 Delivery O2 Flow Rate FiO2 02/05/18 18:22 98.1 93 16 116/57 (76) 98 02/03/18 06:19 Room Air Intake and Output 02/05/18 02/05/18 02/06/18 08:00 16:00 00:00 Intake Total 360 ml 840 ml Balance 360 ml 840 ml Assessment & Plan Problem List: (1) Schizophrenia ICD Codes: F20.9 - Schizophrenia, unspecified Status: Acute Assessment & Plan Patient continues to have perceptional services as well as continued intrusive thoughts. He reports having improved mood and denied suicide ideations today. We will increase olanzapine to 10 mg p.o. twice daily, continue rest of medications. Continue to monitor mood and behavior. Encourage patient to maintain personal hygiene and participate in groups activities while on the unit. Discharge planning in progress. Justification for Cont. Inpt. At risk for further decompensation if at lower level of care Discharge Planning Patient return back to his residence was psychiatrically stable. Problem Qualifiers (1) Schizophrenia: Qualified Codes: F20.0 - Paranoid schizophrenia Claudio Alva MD Feb 05, 2018 18:56
[2018-02-05] MEDS: REMOVE OLD NICODERM (NICOTINE) PATCH T-DERMAL SCH (21:00)
[2018-02-05] MEDS: OLANZapine 10 MG TAB PO SCH (21:28)
[2018-02-06 06:18] VITALS: BP 117/62; PULSE 81; RESP 16; TEMP 98.3; O2SAT 98
[2018-02-06] MEDS: FLUoxetine HCL 20 MG CAP PO SCH (08:36)
[2018-02-06] MEDS: METOPROLOL TARTRATE 25 MG TAB PO SCH (08:36)
[2018-02-06] MEDS: OLANZapine 10 MG TAB PO SCH ×2 (08:36→20:50)
[2018-02-06] MEDS: NICOTINE 21 MG/24 HR PATCH T-DERMAL SCH (08:37)
--- NOTE | 2018-02-06 12:23 | HHI.PYPN ---
Subjective Remarks Reviewed electronic medical records and discussed case with staff. Follow-up was conducted in patient's room with MIKE Urias present. Patient was found sleeping in bed he awoke to verbal stimuli. He reports that he feels "all right ". States that he slept well and his appetite is been good. He denies having any suicidal or homicidal ideation as well as auditory or visual hallucinations. States that he was "stressing and over thinking and worrying about things" when he came in. He did report that he does not like the Prozac. Mental Status Examination Appearance: Appropriate Consciousness: Alert Orientation: x4 Motor Activity: Normal gait Speech: Unremarkable Language: Adequate Fund of Knowledge: Adequate Attention and Concentration: Adequate Memory: Unremarkable Mood: Good Affect: Other Thought Process & Associations: Intact, Logical, Goal directed Thought Content: Hallucinations, Delusional Hallucination Type: Auditory Delusion Type: Paranoid Suicidal Ideation: Yes Suicidal Plan: Yes Suicidal Intention: No Homicidal Ideation: No Homicidal Plan: No Homicidal Intention: No Insight: Poor Judgment: Poor Results Vitals/IOs Vital Signs Date Time Temp Pulse Resp B/P (MAP) Pulse Ox O2 Delivery O2 Flow Rate FiO2 02/06/18 06:18 98.3 81 16 117/62 (80) 98 02/03/18 06:19 Room Air Intake and Output 02/06/18 02/06/18 02/07/18 08:00 16:00 00:00 Intake Total 480 ml Balance 480 ml Assessment & Plan Problem List: (1) Schizophrenia ICD Codes: F20.9 - Schizophrenia, unspecified Status: Acute Assessment & Plan Estimated LOS: Patient reporting some improvement with symptoms. However, staff had reported that he was still complaining of "racing thoughts" earlier today. We will continue with current treatment plan and monitor for psychiatric stabilization. Hopeful for short stay. Days Justification for Cont. Inpt. Moving this patient to a less restrictive environment would likely result in a decompensation. He is only just begun to report some improvement in his symptoms. Problem Qualifiers (1) Schizophrenia: Qualified Codes: F20.0 - Paranoid schizophrenia Enedina Rollins Feb 06, 2018 12:23
[2018-02-06 18:34] VITALS: BP 117/56; PULSE 92; RESP 16; TEMP 98; O2SAT 99
[2018-02-06] MEDS: REMOVE OLD NICODERM (NICOTINE) PATCH T-DERMAL SCH (21:00)
[2018-02-07 05:40] VITALS: BP 125/66; PULSE 71; RESP 16; TEMP 97.3; O2SAT 97
[2018-02-07] MEDS: OLANZapine 10 MG TAB PO SCH ×2 (08:15→20:27)
[2018-02-07] MEDS: METOPROLOL TARTRATE 25 MG TAB PO SCH (08:15)
[2018-02-07] MEDS: FLUoxetine HCL 20 MG CAP PO SCH ×2 (08:16→09:00)
[2018-02-07] MEDS: NICOTINE 21 MG/24 HR PATCH T-DERMAL SCH (08:17)
--- NOTE | 2018-02-07 12:00 | HHI.PYPN ---
Subjective Remarks Reviewed electronic medical records and discussed case with staff. Follow-up was conducted in the day room. Patient had just finished eating his lunch. He reports that he has been sleeping well and has had a good appetite. His nurse reported that he was paranoid about his Prozac saying that he was concerned it would make him constipated and sleepy. Upon my examination however, he denied having those concerns. He is currently discharge focused. His mood was good his affect is euthymic. Answer questions appropriately throughout follow-up is no indication of internal stimulation. Mental Status Examination Appearance: Appropriate Consciousness: Alert Orientation: x4 Motor Activity: Normal gait Speech: Unremarkable Language: Adequate Fund of Knowledge: Adequate Attention and Concentration: Adequate Memory: Unremarkable Mood: Good Affect: Other Thought Process & Associations: Intact, Logical, Goal directed Thought Content: Hallucinations, Delusional Hallucination Type: Auditory Delusion Type: Paranoid Suicidal Ideation: Yes Suicidal Plan: Yes Suicidal Intention: No Homicidal Ideation: No Homicidal Plan: No Homicidal Intention: No Insight: Poor Judgment: Poor Results Vitals/IOs Vital Signs Date Time Temp Pulse Resp B/P (MAP) Pulse Ox O2 Delivery O2 Flow Rate FiO2 02/07/18 05:40 97.3 71 16 125/66 (85) 97 Intake and Output 02/07/18 02/07/18 02/07/18 07:59 15:59 23:59 Intake Total 360 ml Balance 360 ml Assessment & Plan Problem List: (1) Schizophrenia ICD Codes: F20.9 - Schizophrenia, unspecified Status: Acute Assessment & Plan Estimated LOS: Patient reports improvement in his symptoms. He will be reevaluated by his attending psychiatrist tomorrow. Days Justification for Cont. Inpt. Moving this patient to a less restrictive environment would likely result in decompensation. Problem Qualifiers (1) Schizophrenia: Qualified Codes: F20.0 - Paranoid schizophrenia Enedina Rollins KRISHNA Feb 07, 2018 12:00
[2018-02-07 18:25] VITALS: BP 124/75; PULSE 70; RESP 16; TEMP 97.9; O2SAT 99
[2018-02-07] MEDS: REMOVE OLD NICODERM (NICOTINE) PATCH T-DERMAL SCH (20:27)
[2018-02-08 05:18] VITALS: BP 115/68; PULSE 65; RESP 18; TEMP 98.2; O2SAT 98
[2018-02-08] MEDS: METOPROLOL TARTRATE 25 MG TAB PO SCH (08:51)
[2018-02-08] MEDS: OLANZapine 10 MG TAB PO SCH (08:51)
[2018-02-08] MEDS: NICOTINE 21 MG/24 HR PATCH T-DERMAL SCH (09:00)
[2018-02-08] MEDS: FLUoxetine HCL 20 MG CAP PO SCH (09:00)
[2018-02-08] MEDS ORDERED: METO25TA3 PO (11:08)
[2018-02-08] MEDS ORDERED: FLUO20CA12 PO (11:08)
[2018-02-08] MEDS ORDERED: OLAN10TA PO (11:08)
--- NOTE | 2018-02-08 17:40 | HHI.DS ---
Psychiatry Discharge Summary Inpatient Psychiatric care?: Yes Advance Directive: No Reason Not Provided: declined Mental Health AdvanceDirective: No Health Care Proxy: No Admission Admission Date Feb 03, 2018 at 13:44 Admission Diagnosis: (1) Obsessive-compulsive disorder ICD Code: F42.9 - Obsessive-compulsive disorder, unspecified Brief History Patient is a 32-year-old -[place] man, single, no children, domiciled with mother, unemployed, on SSI, with a past psychiatric history of schizophrenia, OCD as per patient, 5 previous psychiatric admissions last time being in September of this year, no previous suicide attempt or self-injurious behavior, followed up at [facility], previous history of marijuana use currently in remission, with a past medical history significant for hypertension , who presented to the ED reporting feeling depressed along with suicide ideation and having persistent intrusive thoughts of the devil which patient was admitted for further psychiatric stabilization. Patient was found ambulating on unit noted B, cooperative. Patient reports feeling stressed recently along with feeling depressed and currently thinking "bad thoughts, as it interferes with my life". Patient states that he is always having negative thoughts, providing example of phone giving radiations to his heart as well as thoughts of the devil going to get him. Patient states that he felt like blowing his brains out because of the thoughts. He also mentions having had watched a YouTube video pertaining to the devil and illuminati. Patient also mentions hemifield persecuted by the devil and feeling guilty of masturbating as he states it is a sin. Patient denies any changes sleep, appetite or energy but reports decreased concentration due to the intrusive thoughts but denies these thoughts of being auditory hallucinations. He also reports having suicide ideations for the past 2 days along with feeling helpless and hopeless. Patient this time denies any suicide ideation reports his mood being "alright " but continues report having these negative thoughts. Patient denies any perceptual disturbances but remains with paranoid ideations due to the same. Family psychiatric history: Denies Past psychiatric history: Previous psychiatric diagnoses schizophrenia, OCD as per patient, 5 previous psychiatric admissions last time being in September, no previous suicide attempt or self-injurious behavior. Patient denies any history of abuse. Patient reports outpatient mental provider at [facility] last seen 2 weeks ago and recent medication regimen included Zyprexa 10 mg p.o. at bedtime as well as Lexapro 20 mg p.o. daily which she has stopped. Substance use history: Alcohol use "sometimes" last time being 6 months ago, patient reports remote history of marijuana use last time being 2 years ago. Patient denies use of any other drugs. Past medical history: Hypertension, currently on metoprolol 20 mg p.o. daily for the same Allergies: Risperidone, Zoloft Social history: Single, no children, domiciled with mother, unemployed on SSI, no background, no asked to firearms, no legal history. Highest education is ninth grade. Collateral contact: Shantal Morales (mother) [phone]. Tobacco Use In Past 30 Days: No Tobacco Past 30 Days Alcohol Use: Never Hospital Course Patient is a 32-year-old -[place] man, single, no children, domiciled with mother, unemployed, on SSI, with a past psychiatric history of schizophrenia, OCD as per patient, 5 previous psychiatric admissions last time being in September of this year, no previous suicide attempt or self-injurious behavior, followed up at [facility], previous history of marijuana use currently in remission, with a past medical history significant for hypertension , who presented to the ED reporting feeling depressed along with suicide ideation and having persistent intrusive thoughts of the devil which patient was admitted for further psychiatric stabilization. Patient was started on olanzapine and titrated to 10mg PO BID, fluoxetine 20mg PO daily which he tolerated medications well, patient was adherent to medication regimen and noted with improved mood and denying any further auditory hallucinations and significant lessening of intrusive thoughts which patient stated was able to tolerate without impediment in function. Patient was noted to be interactive with staff, adherent with medications and noted to have appropriate interactions. Upon discharge patient stated feeling good, noted to be calm and cooperative with staff, denied any perceptual disturbances, denied any delusions; SI or HI. Patient was counseled importance of engaging in continued adherence with treatment which patient would benefit from and agreed to be connected to through outpatient clinic. He agreed to continuing medical recommendations, treatment and cooperate for continuity of care. Patient; denies SI, HI, AVH or delusions. Supportive psychotherapy provided. Suicide and violence risk assessment on day of discharge both suggest lower imminent risk, and the patient's level of function is adequate for planned level of outpatient care. Patient has maximized benefit from this inpatient psychiatric hospital stay and to return to psychiatric emergency room for any concerning psychiatric symptoms. Patient agrees with plan. Results Blood Pressure 115 / 68 Vital Signs Date Time Temp Pulse Resp B/P (MAP) Pulse Ox O2 Delivery O2 Flow Rate FiO2 02/08/18 05:18 98.2 65 18 115/68 (84) 98 Laboratory Results Test 02/04/18 06:47 Cholesterol Level 91 MG/DL (120-200) HDL Cholesterol 43.4 MG/DL (40.0-60.0) Hemoglobin A1c 5.1 % (4.3-6.0) LDL Cholesterol 35 MG/DL (0-99) Triglycerides Level 65 MG/DL (42-150) Summary of Procedures None Pending results at discharge: No Medications # of Antipsychotic meds at D/C: 1 Approp Antipsych med options 1 - Minimum of three failed multiple trials of monotherapy. 2 - Documented plan to taper to monotherapy due to previous use of multiple meds OR cross-taper in progress at D/C. 3 - Documentation of augmentation of Clozapine. 4 - Justification other than those listed in allowable values 1-3, document here : Discharge Discharge Date: Feb 08, 2018 Discharge Diagnosis: (1) Obsessive-compulsive disorder ICD Code: F42.9 - Obsessive-compulsive disorder, unspecified Pt Condition on Discharge: Stable Discharge Disposition: Discharge Home Discharge Instructions Diet Instructions: As Tolerated, No Restrictions Activities you can perform: Regular-No Restrictions Scheduled Appointment: [facility] [place] Discharge Time > 30 minutes Mental Status Examination Appearance: Appropriate Consciousness: Alert Orientation: x4 Motor Activity: Normal gait Speech: Unremarkable Language: Adequate Fund of Knowledge: Adequate Attention and Concentration: Adequate Memory: Unremarkable Mood: Good Affect: Appropriate Thought Process & Associations: Intact, Logical, Goal directed Thought Content: Appropriate Hallucination Type: None Delusion Type: None Suicidal Ideation: No Suicidal Plan: No Suicidal Intention: No Homicidal Ideation: No Homicidal Plan: No Homicidal Intention: No Insight: Fair Judgment: Impulsive Discharge/Advance Care Plan Health Problems: (1) Schizophrenia Goals to promote your health * To prevent worsening of your condition and complications * To maintain your health at the optimal level Directions to meet your goals Take your medications as prescribed Follow your dietary instruction Follow activity as directed Keep your appointments as scheduled Take your immunizations and boosters as scheduled If your symptoms worsen call your PCP, if no PCP go to Urgent Care Center or Emergency Room For 09/03 questions related to your inpatient stay or results of tests pending at discharge, please contact Dr. Claudio Alva at Smoking is Dangerous to Your Health. Avoid second hand smoking Claudio Alva MD Feb 08, 2018 17:40
== END 2018-02-08 13:05 | disposition home or self-care (01) | DRG 885 ==
LOC: NEPD 19:36 → NEDA 02-03 13:44 → H260 02-03 13:55
PROVIDERS: ADMIT Student in an Organized Health Care Education/Training Program; ATTEND Student in an Organized Health Care Education/Training Program
DX: F20.0 Paranoid schizophrenia (principal); R45.851 Suicidal ideations; F42.9 Obsessive-compulsive disorder, unspecified; F90.9 Attention-deficit hyperactivity disorder, unspecified type; F41.9 Anxiety disorder, unspecified; Z88.8 Allergy status to other drugs, medicaments and biological substances
CPT/HCPCS: 80048; 80053; 80061; 80307; 83036; 84443; 85025